=== PATIENT | female | born 2000 | race Caucasian/White ===

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

== ENCOUNTER 2020-05-14 14:44 | Emergency (ER) | payer OTHER, MEDICAID, SELFPAY ==
[2019-09-06 04:37] VITALS: BMI 16.6
[2020-05-14 14:45] VITALS: BP 131/75; PULSE 92; RESP 18; TEMP 36.3; O2SAT 93; BMI 20.3
--- NOTE | 2020-05-14 15:15 | RAD_ITS ---
STUDY: X-RAY CHEST REASON FOR EXAM: Female, 20 years old. pt having cough, sore throat, and runny nose TECHNIQUE: PA and lateral views of the chest. COMPARISON: 12/16/2015 FINDINGS: The lungs are clear and expanded. There is no demonstrated pleural abnormality. Normal size heart. Normal mediastinum and jayce. Normal visualized pulmonary arteries. Normal visualized aortic arch and descending thoracic aorta. Normal visualized thoracic spine. Normal visualized ribs, clavicles, and shoulders. There is no demonstrated abnormality of the visualized soft tissue structures of the upper abdomen. RAD/Chest PA and Lateral IMPRESSION: Normal x-ray examination of the chest. Electronically Signed: Ernesto Day MD at 15:27 EDT Tel , Service support ,
--- NOTE | 2020-05-14 16:36 | ED.DCSUM_ITS ---
History of Present Illness Chief Complaint: Cold Sx Informant: Patient Narrative: She presents the emergency department with 5 days of cough, chest soreness, sore throat, and nasal congestion. No reported fevers. She states her brother had similar symptoms but no one else that she has been around. She also notes some lower abdominal discomfort. She states that 6 weeks ago at 18 weeks she had a miscarriage. She went to have a D&C but states that she while under anesthesia she delivered naturally. She has not had any fevers or vaginal discharge. She does not have a local MECHANICAL SUPERVISOR as she was living in [place] at the time. No rashes. - Past Medical History (1) Anxiety Status: Chronic (2) Depression Status: Chronic Past Medical History - Allergies and Home Meds Allergies/Adverse Reactions: Allergies No Known Allergies Allergy (Verified 05/14/20 14:48) Primary Care Physician: Lynda Juarez PA-C [Primary Care Provider] - Prior records reviewed: Yes Past Medical History: None Surgical History: appendectomy, cholecystectomy Smoking Status: Current every day smoker Drugs: None Review of Systems General: Denies: Chills, Fever, Malaise, Sweats Eyes: Denies: Visual changes - bilaterally, Diplopia ENT: Reports: Rhinorrhea, Sore throat Cardiovascular: Reports: Chest pain. Denies: Palpitations Respiratory: Reports: Cough. Denies: Dyspnea, Dyspnea on exertion Gastrointestinal: Reports: Abdominal pain. Denies: Nausea, Vomiting, Diarrhea, Melena, Hematochezia Genitourinary: Reports: - - Continued vaginal bleeding since miscarriage. Dwayne es: Dysuria, Hematuria, Frequency Musculoskeletal: Denies: Back pain, Extremity Pain Skin: Denies: Rash, Wounds Neurological: Denies: Headache, Weakness, Numbness Physical Exam Vital Signs/Narrative: Vital Signs Temp Pulse Resp BP Pulse Ox 05/14/20 14:45 97.3 F L 92 18 131/75 H 93 Inital Vital Signs reviewed: Yes General: Well nourished, Well developed, No Acute Distress Head: Normocephalic, Atraumatic Eyes: Perrl, EOMI ENT: Moist mucous membranes, Nasal congestion, - - Mild pharyngeal erythema without exudates Neck: Supple, Nontender Cardiovascular: Regular rate, Regular rhythm, No murmurs Respiratory: No distress, CTA bilaterally, Chest nontender Abdomen: Soft, Nontender, Nondistended, Normal bowel sounds Back: Nontender, Normal Inspection Extremities: Nontender, No edema Skin: Normal color, No rash Neurological: Alert, Oriented x3, Cranial nerves II-XII grossly intact, Normal Strength, Normal Sensation Psychological: Normal affect, Normal Mood Diagnostic/Tx/Re-eval - Medical Decision Making Patient had a chest x-ray that was negative for infiltrates. We will swab her for COVID. Patient was advised this most likely a viral URI. She does not appear septic and it would be very atypical to develop a significant uterine infection without fever or discharge 6 weeks after her miscarriage. I will provide her with local MECHANICAL SUPERVISOR on-call follow-up. ED Disposition - Plan for ED Patient: Disposition: Home or Assisted Living Diagnosis: Viral URI with cough, Vaginal bleeding Instructions: ED URI Viral Referrals: Lynda Juarez PA-C [Primary Care Provider] - As Needed America Luque MD [STAFF PHYSICIAN] - As soon as possible (for MECHANICAL SUPERVISOR follow up)
[2020-05-14 16:42] VITALS: RESP 18
== END 2020-05-14 17:15 | disposition home or self-care (01) ==
LOC: ED 16:51
PROVIDERS: Emergency Provider Emergency Medicine
DX: J06.9 Acute upper respiratory infection, unspecified (principal); N93.9 Abnormal uterine and vaginal bleeding, unspecified; F17.200 Nicotine dependence, unspecified, uncomplicated
CPT/HCPCS: 71046; 87635; 99282; U0003

== ENCOUNTER 2020-05-24 01:02 | Emergency (ER) | payer OTHER, MEDICAID, SELFPAY ==
[2020-05-24 01:02] VITALS: BP 135/88; PULSE 51; RESP 18; TEMP 36.6; O2SAT 99; BMI 20.5
--- NOTE | 2020-05-24 01:15 | RAD_ITS ---
STUDY: X-RAY CHEST REASON FOR EXAM: Female, 20 years old. RT SIDED CP TECHNIQUE: Frontal and lateral views of the chest. COMPARISON: 05/14/2020. FINDINGS: There are no confluent pulmonary infiltrates. There is no demonstrated pleural abnormality. Normal size heart. Normal mediastinum and jayce. Normal visualized aortic arch and descending thoracic aorta. There are no demonstrated acute fractures or destructive bone lesions. There is no demonstrated abnormality of the visualized soft tissue structures of the upper abdomen. RAD/Chest PA and Lateral IMPRESSION: Normal x-ray examination of the chest. Electronically Signed: Crow Schwab MD at 1:42 EDT , Service support ,
--- NOTE | 2020-05-24 01:15 | EKG12_ITS ---
Test Reason : CP Blood Pressure : / mmHG Vent. Rate : 051 BPM Atrial Rate : 051 BPM P-R Int : 130 ms QRS Dur : 084 ms QT Int : 424 ms P-R-T Axes : 051 070 059 degrees QTc Int : 390 ms Sinus bradycardia with sinus arrhythmia Otherwise normal ECG Confirmed by ERIKA BRAY, ARAMIS ([id number]), makeup editor ADRIANO MCGEE ([id number]) on 05/29/2020 8:06:31 AM Referred By: PATTY Confirmed By:ARAMIS JAMES MD
--- NOTE | 2020-05-24 01:16 | ED.VIS.GEN ---
History of Present Illness Chief Complaint: Chest Pain Informant: Patient Narrative: Presents with chest discomfort. She stated 5 hours ago she started having some achiness in the left side of her chest. Mild in nature. No home treatment. No cardiac PE or dissection risk factors. Denies any chronic medical problems. Had a D&C for miscarriage approximately 2 months ago. She has been having some mild bleeding since. Denies any fevers or chills. No shortness of breath. No coronavirus exposures. She stated she has some soreness in the left side of her neck and soreness in her low back. No injury. No home treatment for these. - Past Medical History (1) Anxiety Status: Chronic (2) Depression Status: Chronic (3) History of appendectomy Status: Chronic (4) Hx of cholecystectomy Status: Chronic Past Medical History - Allergies and Home Meds Allergies/Adverse Reactions: Allergies No Known Allergies Allergy (Verified 05/24/20 01:05) Primary Care Physician: Care Physician,No Primary [Primary Care Provider] - Prior records reviewed: Yes Past Medical History: - - See problem list Surgical History: appendectomy, cholecystectomy Lives: With Family Smoking Status: Current some day smoker Alcohol: None Drugs: None Review of Systems General: Denies: Chills, Fever, Sweats Eyes: Denies: Visual changes - bilaterally, Diplopia ENT: Denies: Rhinorrhea, Sore throat Cardiovascular: Reports: Chest pain. Denies: Palpitations Respiratory: Denies: Dyspnea, Cough, Dyspnea on exertion Gastrointestinal: Denies: Abdominal pain, Nausea, Vomiting, Diarrhea, Melena, Hematochezia Genitourinary: Denies: Dysuria, Hematuria, Frequency Musculoskeletal: Reports: Neck pain, Back pain. Denies: Extremity Pain Skin: Denies: Rash, Wounds Neurological: Denies: Headache, Weakness, Numbness Physical Exam Vital Signs/Narrative: Vital Signs Temp Pulse Resp BP Pulse Ox 05/24/20 01:02 98 F 51 L 18 135/88 H 99 General: Well nourished, Well developed, No Acute Distress Head: Normocephalic, Atraumatic Eyes: Perrl, EOMI ENT: Moist mucous membranes, No rhinorrhea Neck: Supple, Nontender Cardiovascular: Regular rate, Regular rhythm, No murmurs Respiratory: No distress, CTA bilaterally, Chest nontender Abdomen: Soft, Nontender, Nondistended, Normal bowel sounds Back: Nontender, Normal Inspection Extremities: Nontender, No edema Skin: Normal color, No rash Neurological: Alert, Oriented x3, Cranial nerves II-XII grossly intact, Normal Strength, Normal Sensation Psychological: Normal affect, Normal Mood Diagnostic/Tx/Re-eval - Medical Decision Making Patient resting comfortably. EKG obtained upon arrival shows sinus bradycardia. Rate of 51 with sinus arrhythmia noted. T wave inversion in V1 and V2 only. Patient given ibuprofen. Chest x-ray obtained. It is negative. At this time I feel this is noncardiac related. I do not feel she needs lab work. Have a low suspicion for acute coronary syndrome pulmonary embolism or dissection. She has no risk factors for either of these. I like her to continue anti-inflammatories and follow-up as an outpatient ED Disposition - Plan for ED Patient: Disposition: Home or Assisted Living Diagnosis: Chest pain at rest Instructions: ED Chest Pain NonCardiac Prescriptions: Meloxicam 15 mg PO DAILY PRN PRN #30 tab PRN Reason: Pain Score 1-10 Transmission Status: Pending to [facility]/pharmacy #[id number] Referrals: Hussein Mancuso MD [STAFF PHYSICIAN] -
[2020-05-24] MEDS: Ibuprofen 600 MG Tablet PO (01:24)
[2020-05-24 02:00] VITALS: BP 115/75; PULSE 50; RESP 17; O2SAT 99
== END 2020-05-24 02:01 | disposition home or self-care (01) ==
PROVIDERS: Emergency Provider Emergency Medicine
DX: R07.89 Other chest pain (principal); M54.2 Cervicalgia; M54.9 Dorsalgia, unspecified; Z90.49 Acquired absence of other specified parts of digestive tract; F17.200 Nicotine dependence, unspecified, uncomplicated
CPT/HCPCS: 71046; 93005; 99284

== ENCOUNTER 2020-05-31 01:34 | Emergency (ER) | payer OTHER, MEDICAID, SELFPAY ==
[2020-05-31 01:36] VITALS: BP 117/69; PULSE 63; RESP 15; TEMP 36.2; O2SAT 100; BMI 20.5
--- NOTE | 2020-05-31 01:59 | ED.VIS.GEN ---
History of Present Illness Chief Complaint: Vag Bleeding Informant: Patient Narrative: Patient is a 20-year-old previously healthy female who presents to the emergency department for vaginal bleeding. She states that she is going through 5-6 tampons per day. She feels like the blood has turned a different color which made her concerned. She did have a D&C performed 10 weeks ago for a miscarriage although she states that she passes spontaneously during the procedure. She has been having daily bleeding like this since. She denies any symptoms of anemia including any lightheadedness, chest pain, shortness of breath or palpitations. She denies any easy bleeding or bruising elsewhere. This was her first . She denies any abdominal pain at this moment although she has had some intermittent pain previously. She has not had any fevers or chills. She denies any urinary symptoms. She has not followed up with an [employer] [facility]PER[facility]OR at this point. Past Medical History - Allergies and Home Meds Allergies/Adverse Reactions: Allergies No Known Allergies Allergy (Verified 05/31/20 01:35) Primary Care Physician: Monique Connell MD [STAFF PHYSICIAN] - 1 Day Care Physician,No Primary [Primary Care Provider] - Prior records reviewed: Yes Surgical History: appendectomy, cholecystectomy Smoking Status: Never smoker Review of Systems All systems negative except as indicated General: Denies: Chills, Fever, Sweats Eyes: Denies: Visual changes - bilaterally, Diplopia ENT: Denies: Rhinorrhea, Sore throat Cardiovascular: Denies: Chest pain, Palpitations Respiratory: Denies: Dyspnea, Cough, Dyspnea on exertion Gastrointestinal: Denies: Abdominal pain, Nausea, Vomiting, Diarrhea, Melena, Hematochezia Genitourinary: Reports: - - Vaginal bleeding. Denies: Dysuria, Hematuria, Frequency Musculoskeletal: Denies: Back pain, Extremity Pain Skin: Denies: Rash, Wounds Neurological: Denies: Headache, Weakness, Numbness Physical Exam Vital Signs/Narrative: Vital Signs Temp Pulse Resp BP Pulse Ox 05/31/20 01:36 97.2 F L 63 15 117/69 100 Inital Vital Signs reviewed: Yes General: Well nourished, Well developed, No Acute Distress Head: Normocephalic, Atraumatic Eyes: Perrl, EOMI ENT: Moist mucous membranes, No rhinorrhea Neck: Supple, Nontender Cardiovascular: Regular rate, Regular rhythm, No murmurs Respiratory: No distress, CTA bilaterally, Chest nontender Abdomen: Soft, Nontender, Nondistended, Normal bowel sounds Back: Nontender, Normal Inspection Extremities: Nontender, No edema Skin: Normal color, No rash Neurological: Alert, Oriented x3, Cranial nerves II-XII grossly intact, Normal Strength, Normal Sensation Psychological: Normal affect, Normal Mood Diagnostic/Tx/Re-eval - Medical Decision Making Patient presents to the emergency department for vaginal bleeding over the past 10 weeks since she had a D&C performed. Physical exam is very benign without any abdominal pain. She is afebrile. Vital signs within normal limits. At this time we do not have ultrasound available in the department. Will check basic lab work to evaluate anemia status. Patient's lab work did not reveal any significant acute abnormality. H&H was within normal limits. She does not have an elevated blood cell count. Urine did not show any evidence of infection. Urine came back negative. I urged the patient to call the [employer]PER[employer] that I am giving her referral to that in the morning for close follow-up. She was given referral for [employer] when she was last seen in the emergency department for URI complaints on 14 May but she did not call. We will make a new referral. Warning signs and symptoms for which to return to the ED including any abdominal pain, fever/chills or symptoms of anemia are reviewed. She understands and is agreeable this plan. Patient discharged home in stable condition. ED Disposition - Plan for ED Patient: Disposition: Home or Assisted Living Diagnosis: Vaginal bleeding Instructions: ED Bleed Irregular Vaginal Referrals: Care Physician,No Primary [Primary Care Provider] - Monique Connell MD [STAFF PHYSICIAN] - 1 Day
[2020-05-31 02:01] LABS: Absolute Lymphocyte Count 2.43 X10^3/uL (0.83-4.51); Absolute Neutrophil Count 2.9 X10^3/uL (2.0-7.7); Basophil# 0.08 X10^3/uL; Basophil% 1.3 % (0-1); Eosinophil# 0.23 X10^3/uL; Eosinophils% 3.7 % (0-5); Hematocrit 39.8 % (37-47); Hemoglobin 13.7 g/dL (12.0-15.0); Lymphocyte # 2.43 X10^3/ul (4.0); Lymphocyte % 38.6 % (19-41); Mean Corp Hgb Conc 34.4 g/dL (32-36); Mean Corpuscular Hgb 31.6 pg (27.0-32.0); Mean Corpuscular Volume 91.7 fL (81-99); Mean Platelet Vol. 9.7 fl (6.2-12.0); Monocyte# 0.63 X10^3/uL; NRBC Flagged by Analyzer 0 % (0-5); Neutrophil # 2.91 X10^3/uL (2.7-7.7); Neutrophil % 46.2 % (47-70); Platelet Count 279 K/mm3 (150-450); RBC Distribution Width CV 10.7 % (11.6-14.6); RBC Distribution Width SD 36.2 fl (35.1-43.9); Red Blood Count 4.34 M/mm3 (4.2-5.4); White Blood Count 6.3 K/mm3 (4.4-11.0)
[2020-05-31 02:06] LABS: Bacteria 0 SEEN /hpf (None Seen); Color, Urine Yellow (Yellow); Glucose, Dipstick Normal (Normal); Ketone-Dipstick Negative (Negative); Leukocyte Esterase-Dipstick 25 /ul (Negative); Mucous, Urine 0 SEEN /hpf (<or=2+); Nitrite-Dipstick Negative (Negative); Occult Blood-Urine 150 /ul (Negative); Protein-Dipstick Negative (Negative); Specific Gravity, Urine 1.025 (1.002-1.030); Urine Bilirubin Dipstick Negative (Negative); Urine Clarity Sl. Cloudy (Clear); Urine Urobilinogen Normal (Normal)
[2020-05-31 02:09] LABS: Internal QC Validated? YES +Cl - CLEAR BKGD; Pregnancy, Urine Negative Negative
[2020-05-31 02:11] LABS: White Blood Cells 5-10 SEEN /hpf (0-5)
[2020-05-31 02:12] LABS: Red Blood Cells-Urine 0-5 SEEN /hpf (0-5); Squamous Epithelial Cells - UA 10-25 SEEN /hpf (5-10)
[2020-05-31 02:14] LABS: Anion Gap 4 (5-15); BUN 16 mg/dL (7-18); BUN/Creat Ratio 18.3 RATIO (10-20); Calcium,Total 9.2 mg/dL (8.5-10.1); Chloride 109 mmol/L (98-107); Creatinine, Serum 0.87 mg/dL (0.55-1.02); EST Glomerular Filtration Rate 88 mL/min (>60); Est Glom Filt Rate - Afr Amer 106 mL/min (>60); Estimated Creatinine Clearance 85.33 ml/min; Glucose 93 mg/dL (74-106); Potassium 3.6 mmol/L (3.5-5.1); Sodium Level 143 mmol/L (136-145)
== END 2020-05-31 02:35 | disposition home or self-care (01) ==
PROVIDERS: Emergency Provider Emergency Medicine
DX: N93.9 Abnormal uterine and vaginal bleeding, unspecified (principal)
CPT/HCPCS: 80048; 81001; 81025; 85025; 99281; A4216

== ENCOUNTER → 2020-06-20 09:37 | Outpatient (CLI) | payer OTHER, MEDICAID, SELFPAY ==
[2020-05-31 01:36] VITALS: BMI 20.5
[2020-06-20 12:02] LABS: hCG Titer Quant., Serum 81 mIU/mL (1-3)
== END ==
PROVIDERS: Referring Provider Nurse Practitioner Women's Health; Visit Provider Nurse Practitioner Women's Health
DX: N91.2 Amenorrhea, unspecified (principal)
CPT/HCPCS: 36415; 84702

== ENCOUNTER → 2020-06-22 12:41 | Outpatient (CLI) | payer OTHER, MEDICAID, SELFPAY ==
[2020-05-31 01:36] VITALS: BMI 20.5
[2020-06-22 13:44] LABS: hCG Titer Quant., Serum 204 mIU/mL (1-3)
== END ==
PROVIDERS: Referring Provider Nurse Practitioner Women's Health; Visit Provider Nurse Practitioner Women's Health
DX: N91.2 Amenorrhea, unspecified (principal)
CPT/HCPCS: 36415; 84702

== ENCOUNTER → 2020-07-18 16:24 | Outpatient (CLI) | payer OTHER, MEDICAID, SELFPAY ==
[2020-07-09 11:51] VITALS: BMI 20.3
--- NOTE | 2020-07-18 16:27 | US_ITS ---
STUDY: FIRST TRIMESTER OBSTETRICAL ULTRASOUND REASON FOR EXAM: Female, 20 years old DATING LMP: 05/22/2020 TECHNIQUE: Transvaginal TECHNICAL QUALITY: Adequate. PRIOR ULTRASOUND: None. FINDINGS: There is visualization of a single gestational sac in a normal intrauterine position. The mean sac diameter (MSD) measures 28 mm, indicating an estimated gestational age (EGA) of 7 weeks, 6 days. The gestational sac shape is within normal limits. 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 There is a visualized yolk sac. The yolk sac measures 4 mm. The placenta is non-visualized. There is visualization of a live embryo. The crown-rump length (CRL) measures 14 mm, indicating an estimated gestational age (EGA) of 7 weeks, 4 days. There is demonstrated cardiac activity with a heart rate of 171 bpm. The estimated gestation age (EGA) by LMP is 8 weeks, 1 days. The estimated date of delivery (JOSE MARIA) by LMP is 02/26/2021. The estimated gestation age (EGA) by US is 7 weeks, 5 days. The estimated date of delivery (JOSE MARIA) by US is 03/01/2021. The uterus measures 9.4 x 9.9 x 4.4 cm. There is no demonstrated uterine fibroid. The cervix is closed. The right ovary measures 3.2 x 2.2 x 1.6 cm. There is no right ovarian cyst. There is no visualized right adnexal mass or complex lesion. The left ovary measures 2.0 x 1.6 x 1.5 cm. There is no left ovarian cyst. There is no visualized left adnexal mass or complex lesion. There is no fluid in the cul de sac. 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 Electronically Signed: Ernesto Day MD at 12:54 EST Tel , Service support ,
[2020-07-18 17:18] LABS: Absolute Lymphocyte Count 1.57 X10^3/uL (0.83-4.51); Absolute Neutrophil Count 9.2 X10^3/uL (2.0-7.7); Basophil# 0.07 X10^3/uL; Basophil% 0.6 % (0-1); Eosinophil# 0.05 X10^3/uL; Eosinophils% 0.4 % (0-5); Hematocrit 39.9 % (37-47); Hemoglobin 13.7 g/dL (12.0-15.0); Lymphocyte # 1.57 X10^3/ul (4.0); Lymphocyte % 13.3 % (19-41); Mean Corp Hgb Conc 34.3 g/dL (32-36); Mean Corpuscular Hgb 30.9 pg (27.0-32.0); Mean Corpuscular Volume 90.1 fL (81-99); Mean Platelet Vol. 9.3 fl (6.2-12.0); Monocyte# 0.86 X10^3/uL; Monocyte% 7.3 % (0-10); NRBC Flagged by Analyzer 0 % (0-5); Neutrophil # 9.21 X10^3/uL (2.7-7.7); Platelet Count 274 K/mm3 (150-450); RBC Distribution Width CV 11.1 % (11.6-14.6); RBC Distribution Width SD 36.4 fl (35.1-43.9); Red Blood Count 4.43 M/mm3 (4.2-5.4); White Blood Count 11.8 K/mm3 (4.4-11.0)
[2020-07-19 02:34] LABS: Rapid Plasmin Reagin (RPR) NONREACTIVE (NONREACTIVE)
[2020-07-19 09:00] LABS: HIV - WCH Non-Reactive (Nonreactive); Hepatitis B Surface Antigen Non-Reactive (Nonreactive); Hepatitis C Antibody Non-Reactive (Nonreactive); Rubella IgG Reactive (Nonreactive)
[2020-07-22 07:06] LABS: Dilute Russell Viper Venom 29.1 sec (0.0-47.0); Thrombin Time 15.8 sec (0.0-23.0); dPT Confirm Ratio 0.92 Ratio (0.00-1.40)
[2020-07-22 14:26] LABS: Anti-Cardiolipin Ab, IgA, Qn < 9 APL U/mL (0-11); Anti-Cardiolipin Ab, IgG, Qn < 9 GPL U/mL (0-14); Anti-Cardiolipin Ab, IgM, Qn 13 MPL U/mL (0-12); Beta-2-Glycoprotein I IgA <9 (0-25); Beta-2-Glycoprotein I IgG <9 (0-20); Beta-2-Glycoprotein I IgM <9 (0-32); Interpretation Comment: (.)
== END ==
PROVIDERS: Referring Provider Obstetrics & Gynecology; Visit Provider Obstetrics & Gynecology
DX: Z34.90 Encounter for supervision of normal pregnancy, unspecified, unspecified trimester (principal); Z87.59 Personal history of other complications of pregnancy, childbirth and the puerperium
CPT/HCPCS: 36415; 76801; 85025; 86146; 86147; 86592; 86703; 86762; 86803; 86850; 86900; 86901; 87340

== ENCOUNTER → 2020-08-16 13:08 | Outpatient (CLI) | payer OTHER, MEDICAID, SELFPAY ==
[2020-08-08 16:24] VITALS: BMI 20.9
== END ==
PROVIDERS: Referring Provider Obstetrics & Gynecology; Visit Provider Obstetrics & Gynecology
DX: Z34.81 Encounter for supervision of other normal pregnancy, first trimester (principal); Z31.430 Encounter of female for testing for genetic disease carrier status for procreative management
CPT/HCPCS: 36415

== ENCOUNTER → 2020-09-12 | Outpatient (CLI) | payer OTHER, MEDICAID, SELFPAY ==
[2020-09-12 13:45] VITALS: BMI 20.8
== END | disposition home or self-care (01) ==
LOC: LABSPEC 15:33
PROVIDERS: Referring Provider Obstetrics & Gynecology; Visit Provider Obstetrics & Gynecology
DX: O26.899 Other specified pregnancy related conditions, unspecified trimester (principal); R10.2 Pelvic and perineal pain; Z3A.00 Weeks of gestation of pregnancy not specified
CPT/HCPCS: 87070; 87077; 87086; 87088; 87205

== ENCOUNTER 2020-09-13 18:54 | Outpatient (CLI) | payer OTHER, MEDICAID, SELFPAY ==
[2020-09-12 13:45] VITALS: BMI 20.8
[2020-09-13 19:13] VITALS: BP 118/59; PULSE 59; TEMP 37.1; O2SAT 99
[2020-09-13 19:19] VITALS: PULSE 64; O2SAT 98
[2020-09-13 19:21] VITALS: BP 118/59; PULSE 59
[2020-09-13 19:31] VITALS: BMI 21.0
--- NOTE | 2020-09-13 21:27 | OB.TRI.NOTE ---
- Problem List (1) Vaginal discharge Status: Acute (2) Supervision of high risk , antepartum Status: Acute Comment: JOSE MARIA 03[birth year] PC (Sosa-jul) BF: Javi History of Present Illness Date of Service: 09/13/20 Was patient seen by the physician?: Yes Reason For Visit: R/O RUPTURED MEMBRANE Date of Service: 09/13/20 Final JOSE MARIA: 03/02/21 Gestational age: 15 Weeks and 5 Days History of Present Illness: 20-year-old G2, P0 at 15 weeks gestation presenting for leakage of fluid. Patient reports that she has felt increased need to urinate. Reports that she feels like she is leaking fluid when she urinates. Denies leakage between episodes of urination. Denies pain or burning with urination. She had a urinalysis done in the office yesterday that was negative. Urine culture is still pending from the office. Allergies No Known Allergies Allergy (Verified 09/13/20 19:33) - Pertinent Past Medical History Medical History: Past Medical History (Last Reviewed 09/12/20 @ 13:44 by Shell Marquez) demise (Resolved) Onset Date: ~03/2020 [facility] demise (Resolved) Onset Date: ~03/2020 at 18 weeks [facility] Surgical History: Past Surgical History (Last Reviewed 09/12/20 @ 13:44 by Shell Marquez) S/P appendectomy S/P cholecystectomy Review of Systems Constitutional: Denies: Chills, Fever Genitourinary: Reports: Frequency, Urgency. Denies: Dysuria, Hematuria, Hesitancy, Incontinence Gynecological: Reports: Vaginal discharge. Denies: Vaginal bleeding, Vaginal itching Physical Exam Vitals: Vital Signs Pulse BP Pulse Ox 59 L 118/59 L 98 09/13/20 19:21 09/13/20 19:21 09/13/20 19:19 General: Alert, Oriented x3, Cooperative, No apparent distress, Well developed, Well nourished HEENT: Atraumatic, PERRLA, EOMI, Normocephalic Cardiovascular: Regular rate Lungs: Normal air movement Abdomen: Soft, Non Tender, Non-Distended, Gravid, Appropriate for Gestational Age Extremities:: No edema Neurological: Cranial nerves II-XII grossly intact, Neuro grossly intact FACILITIES LOCATOR: Normal external genitalia, Vulvar lesions Cervix Dilation (cm): 0 - No pooling of fluid NST - FHR Rate Baby A Baseline: Heart tones 150s Impression/Plan 20-year-old G2, P0 at 15 weeks gestation presenting with leakage of fluid 1. Leakage of fluid -Presents with loss of fluid. -Had urinalysis done in the office yesterday which was negative. Urine culture pending. -Speculum exam shows no pooling of fluid. No pooling noted with Valsalva. -Bedside ultrasound performed to confirm heart rate appears normal and normal amount of fluid around baby. -Cervix closed thick and high. -Discussed that this is likely due to pressure from the fact that baby is sitting low in her pelvis. Vaginal culture still pending from the office yesterday. Urine culture still pending. -Reassurance provided. Return precautions reviewed with patient. Multi Select Codes - Visit Charges Office Visit/Consults: 29991 OV L3 Est
== END 2020-09-13 19:40 | disposition home or self-care (01) ==
LOC: WP 09-14 01:17 → WPOUT 09-14 01:17
PROVIDERS: Visit Provider Obstetrics & Gynecology
DX: Z03.71 Encounter for suspected problem with amniotic cavity and membrane ruled out (principal)
CPT/HCPCS: 76815; 99218; G0378

== ENCOUNTER 2020-10-04 21:38 | Outpatient (CLI) | payer OTHER, MEDICAID, SELFPAY ==
[2020-09-28 13:13] VITALS: BMI 21.4
[2020-10-04 21:44] VITALS: BP 110/55; PULSE 73; TEMP 37.6; O2SAT 100
[2020-10-04 21:47] VITALS: BP 110/55; PULSE 66; PULSE 74; O2SAT 100
[2020-10-04 22:05] VITALS: BMI 21.5
[2020-10-04 22:44] LABS: Color, Urine Yellow (Yellow); Glucose, Dipstick Normal (Normal); Ketone-Dipstick Negative (Negative); Leukocyte Esterase-Dipstick 25 /ul (Negative); Nitrite-Dipstick Negative (Negative); Occult Blood-Urine Negative /ul (Negative); Protein-Dipstick Negative (Negative); Urine Bilirubin Dipstick Negative (Negative); Urine Clarity Sl. Cloudy (Clear); Urine Urobilinogen Normal (Normal)
[2020-10-04] MEDS: metroNIDAZOLE 500 MG Tablet PO (22:47)
--- NOTE | 2020-10-05 17:02 | OB.TRI.HP_ITS ---
- Problem List (1) Pelvic pressure in female Status: Acute (2) Supervision of high risk , antepartum Status: Acute Comment: JOSE MARIA 03[birth year]21 Boy Daisy Kevin (calling him Kevin) PC () BF: Javi History of Present Illness Date of Service: 10/04/20 Was patient seen by the physician?: Yes Reason For Visit: CRAMPING Date of Service: 10/04/20 Final JOSE MARIA: 03/02/21 Gestational age: 18 Weeks and 6 Days History of Present Illness: 20-year-old G2, P0 at 18 weeks gestation with a history of cervical insufficiency 1 week status post cerclage placement presents with pelvic pressure and discomfort. Reports the pain started about 2 h prior to arrival. Reports that pain has been constant. Reports feels like pelvic pressure. Denies vaginal bleeding. Does report a small amount of increased discharge. Allergies No Known Allergies Allergy (Verified 10/04/20 22:21) - Pertinent Past Medical History Medical History: Past Medical History (Last Reviewed 10/05/20 @ 10:43 by Marii Gillis) demise (Resolved) Onset Date: ~03/2020 demise at 18 weeks- in [facility] demise (Resolved) Onset Date: ~03/2020 at 18 weeks delivered in [facility] Surgical History: Past Surgical History (Last Reviewed 10/05/20 @ 10:43 by Marii Gillis) S/P appendectomy S/P cholecystectomy Laboratory Studies: Laboratory Tests 10/04/20 Range/Units 22:35 Urine Color Yellow (Yellow) Urine Clarity Sl. Cloudy (Clear) Urine pH 7.0 (5.0 - 8.0) Ur Specific [place] 1.010 (1.002-1.030) Urine Protein Negative (Negative) mg/dl Urine Glucose (UA) Normal (Normal) mg/dl Urine Ketones Negative (Negative) mg/dl Urine Occult Blood Negative (Negative) /ul Urine Nitrite Negative (Negative) Urine Bilirubin Negative (Negative) mg/dL Urine Urobilinogen Normal (Normal) mg/dl Ur Leukocyte Esterase 25 H (Negative) /ul Review of Systems Constitutional: Denies: Chills, Fever Gastrointestinal: Denies: Constipation, Diarrhea, Nausea, Vomiting Genitourinary: Denies: Dysuria, Frequency, Hematuria, Urgency Gynecological: Reports: Vaginal discharge. Denies: Vaginal bleeding, Vaginal itching Physical Exam Vitals: Vital Signs Temp Pulse BP Pulse Ox 99.7 F H 74 110/55 L 100 10/04/20 21:44 10/04/20 21:47 10/04/20 21:47 10/04/20 21:47 General: Alert, Oriented x3, Cooperative, No apparent distress, Well developed, Well nourished HEENT: Atraumatic, PERRLA, EOMI, Normocephalic Lungs: Normal air movement Abdomen: Soft, Non-Distended, Appropriate for Gestational Age, - - Mild suprapubic tenderness Extremities:: No edema Neurological: Cranial nerves II-XII grossly intact, Neuro grossly intact Cervix Dilation (cm): 0 - Cervix closed thick and high with cerclage in place and not on tension NST - FHR Rate Baby A Baseline: 150 Impression/Plan 20-year-old G2, P0 at 18 weeks gestation presenting with pelvic pressure with a history of cervical insufficiency with cerclage in place. Pelvic pressure -Cerclage in place and not on tension -Cervix closed thick and high -Moderate amount of vaginal discharge present concerning for bacterial vaginosis. Given the bacterial vaginosis came potentially induced contractions, prescription given for Flagyl. Vaginal culture sent. -Recent UTI-urine culture sent. -Bedside ultrasound performed and confirms adequate amniotic fluid with good movement -Reassurance provided. Reviewed return precautions. Patient has appointment scheduled in the morning to be seen in our office. Multi Select Codes - Visit Charges Office Visit/Consults: 72416 OV L3 Est
== END 2020-10-04 23:00 | disposition home or self-care (01) ==
LOC: WPOUT 21:41 → WP 21:42
PROVIDERS: Visit Provider Obstetrics & Gynecology
DX: O26.892 Other specified pregnancy related conditions, second trimester (principal); R10.2 Pelvic and perineal pain; O34.32 Maternal care for cervical incompetence, second trimester; Z3A.18 18 weeks gestation of pregnancy; Z87.440 Personal history of urinary (tract) infections
CPT/HCPCS: 59050; 76815; 81002; 87070; 87077; 87086; 87088; 87186; 87205; 99218; G0378

== ENCOUNTER 2020-11-21 18:05 | Outpatient (CLI) | payer OTHER, MEDICAID, SELFPAY ==
[2020-11-16 15:02] VITALS: BMI 23.1
[2020-11-21 18:14] VITALS: BMI 23.3
[2020-11-21 18:20] VITALS: TEMP 37.3
[2020-11-21 18:22] VITALS: BP 117/60; PULSE 72
[2020-11-21 18:30] LABS: Color, Urine Yellow (Yellow); Glucose, Dipstick Normal (Normal); Ketone-Dipstick Negative (Negative); Leukocyte Esterase-Dipstick 100 /ul (Negative); Nitrite-Dipstick Negative (Negative); Occult Blood-Urine Negative /ul (Negative); Protein-Dipstick Negative (Negative); Specific Gravity, Urine 1.015 (1.002-1.030); Urine Bilirubin Dipstick Negative (Negative); Urine Clarity Clear (Clear); Urine Urobilinogen Normal (Normal)
--- NOTE | 2020-11-22 13:05 | OB.TRI.NOTE ---
- Problem List (1) Vaginitis affecting in third trimester, antepartum Status: Acute (2) Supervision of high risk , antepartum Status: Acute Comment: PRR JOSE MARIA 03/[birth year]21 Boy Daisy Brown (calling him Kevin) PC () BF: Javi History of Present Illness Date of Service: 11/21/20 Was patient seen by the physician?: Yes Reason For Visit: SPOTTING Date of Service: 11/21/20 Final JOSE MARIA: 03/02/21 Gestational age: 25 Weeks and 5 Days History of Present Illness: 20-year-old G2, P0 at 25 weeks gestation with a history of cervical insufficiency with cerclage in place presents for vaginal spotting. Reports that earlier this evening, she noticed pink-tinged discharge on the toilet paper followed by pelvic pressure. No further vaginal bleeding noted since this time. Does report increased vaginal discharge. Denies pain or burning with urination. Allergies No Known Allergies Allergy (Verified 11/16/20 15:03) - Pertinent Past Medical History Medical History: Past Medical History (Last Reviewed 11/12/20 @ 13:21 by Leilani Argueta) demise (Resolved) Onset Date: ~03/2020 demise at 18 weeks- in [facility] demise (Resolved) Onset Date: ~03/2020 at 18 weeks delivered in [facility] Surgical History: Past Surgical History (Last Reviewed 11/12/20 @ 13:21 by Leilani Argueta) S/P appendectomy S/P cholecystectomy Laboratory Studies: Laboratory Tests 11/21/20 Range/Units 18:22 Urine Color Yellow (Yellow) Urine Clarity Clear (Clear) Urine pH 8.0 (5.0 - 8.0) Ur Specific [place] 1.015 (1.002-1.030) Urine Protein Negative (Negative) mg/dl Urine Glucose (UA) Normal (Normal) mg/dl Urine Ketones Negative (Negative) mg/dl Urine Occult Blood Negative (Negative) /ul Urine Nitrite Negative (Negative) Urine Bilirubin Negative (Negative) mg/dL Urine Urobilinogen Normal (Normal) mg/dl Ur Leukocyte Esterase 100 H (Negative) /ul Review of Systems Constitutional: Denies: Chills, Fever Gastrointestinal: Reports: Abdominal Pain. Denies: Nausea, Vomiting Genitourinary: Denies: Dysuria, Frequency, Hematuria Gynecological: Reports: Vaginal bleeding, Vaginal discharge. Denies: Vaginal itching Physical Exam Vitals: Vital Signs Temp Pulse BP 99.1 F 72 117/60 11/21/20 18:20 11/21/20 18:22 11/21/20 18:22 General: Alert, Oriented x3, Cooperative, No apparent distress, Well developed, Well nourished HEENT: Atraumatic, PERRLA, EOMI, Normocephalic Cardiovascular: Regular rate, Regular Rhythm Lungs: Normal air movement Abdomen: Soft, Non Tender, Non-Distended, Gravid, Appropriate for Gestational Age Extremities:: No edema Neurological: Cranial nerves II-XII grossly intact, Neuro grossly intact FURNACE COMBUSTION ANALYST: Normal external genitalia Presentation: Cephalic Cervix Dilation (cm): 0 - Cerclage in place, not on tension, thick white discharge noted NST - FHR Rate Baby A Variability:: Moderate Accelerations:: 10 x 10 Decelerations:: None NST Reactive:: Appropriate for gestational age FHR Category:: Category I Uterine Activity:: No contractions Impression/Plan 20-year-old G2, P0 at 25 weeks gestation presenting with vaginal bleeding Vaginal bleeding -Cerclage in place and not on tension -Cervix closed thick and high -No evidence of bleeding. No further bleeding since arrival. -Exam shows evidence of yeast infection-Terazol cream prescribed, vaginal culture sent. -UA positive for leuks but otherwise negative. Urine culture sent. Multi Select Codes - Visit Charges Office Visit/Consults: 22732 OV L3 Est - Urinary/Genital Urinary/Genital CPT Codes: 03635-28 non-stress test Interp
== END 2020-11-21 19:15 | disposition home or self-care (01) ==
LOC: WPOUT 18:12 → WP 18:13
PROVIDERS: Visit Provider Obstetrics & Gynecology
DX: O46.92 Antepartum hemorrhage, unspecified, second trimester (principal); O09.92 Supervision of high risk pregnancy, unspecified, second trimester; Z3A.25 25 weeks gestation of pregnancy
CPT/HCPCS: 59025; 59050; 81002; 87070; 87086; 87088; 87205; 99218; G0378

== ENCOUNTER → 2020-11-30 10:09 | Outpatient (CLI) | payer OTHER, MEDICAID, SELFPAY ==
[2020-11-30 09:35] VITALS: BMI 23.3
[2020-11-30 10:49] LABS: Absolute Lymphocyte Count 1.43 X10^3/uL (0.83-4.51); Absolute Neutrophil Count 8.7 X10^3/uL (2.0-7.7); Basophil# 0.06 X10^3/uL; Basophil% 0.5 % (0-1); Eosinophils% 0.9 % (0-5); Hematocrit 38.5 % (37-47); Hemoglobin 12.9 g/dL (12.0-15.0); Lymphocyte # 1.43 X10^3/ul (0.83-4.51); Lymphocyte % 13.1 % (19-41); Mean Corp Hgb Conc 33.5 g/dL (32-36); Mean Corpuscular Hgb 31.6 pg (27.0-32.0); Mean Corpuscular Volume 94.4 fL (81-99); Mean Platelet Vol. 9.9 fl (6.2-12.0); Monocyte# 0.56 X10^3/uL; Monocyte% 5.1 % (0-10); NRBC Flagged by Analyzer 0 % (0-5); Neutrophil # 8.71 X10^3/uL (2.7-7.7); Neutrophil % 79.6 % (47-70); Platelet Count 218 K/mm3 (150-450); RBC Distribution Width CV 11.5 % (11.6-14.6); RBC Distribution Width SD 39.4 fl (35.1-43.9); Red Blood Count 4.08 M/mm3 (4.2-5.4)
[2020-11-30 10:59] LABS: Glucose Challenge Gest 1H 50g 131 mg/dL (70-140)
[2020-12-03 18:47] LABS: V-Zoster IgG (Immunity) < 135 index (Immune >165)
== END ==
PROVIDERS: Obstetrics & Gynecology; Referring Provider Obstetrics & Gynecology; Visit Provider Obstetrics & Gynecology
DX: Z34.90 Encounter for supervision of normal pregnancy, unspecified, unspecified trimester (principal); Z01.84 Encounter for antibody response examination; Z13.1 Encounter for screening for diabetes mellitus
CPT/HCPCS: 36415; 82950; 85025; 86787

== ENCOUNTER 2020-12-10 19:04 | Outpatient (CLI) | payer OTHER, MEDICAID, SELFPAY ==
[2020-12-07 08:37] VITALS: BMI 23.3
[2020-12-10 19:20] VITALS: BMI 23.8
[2020-12-10 19:21] VITALS: BP 121/62; PULSE 76; PULSE 83; TEMP 37.2; O2SAT 98
[2020-12-10] MEDS: Terbutaline 1 MG/ML Vial 0.25 MG SC (20:02)
[2020-12-10 20:26] LABS: ROM Internal Control Test YES-OK TO RESULT pt. (Internal QC); ROM Patient Test Negative (Negative)
[2020-12-10 20:40] LABS: Color, Urine Yellow (Yellow); Glucose, Dipstick Normal (Normal); Ketone-Dipstick Negative (Negative); Leukocyte Esterase-Dipstick Negative /ul (Negative); Nitrite-Dipstick Negative (Negative); Occult Blood-Urine Negative /ul (Negative); Protein-Dipstick Negative (Negative); Specific Gravity, Urine 1.015 (1.002-1.030); Urine Bilirubin Dipstick Negative (Negative); Urine Clarity Clear (Clear); Urine Urobilinogen Normal (Normal)
--- NOTE | 2020-12-11 12:24 | OB.TRI.PN ---
Progress Notes Progress Note: Patient presents for triage evaluation secondary to threatened labor FHT: 140 Moderate variability reactive no decelerations category I tracing [place]: Initially every 5 minutes and then none after terbutaline contractions Assessment and plan: Threatened labor, cervix closed negative ROM plus, no cervical change in contractions resolved with 1 dose of terbutaline. Reactive NST, reassuring maternal and status patient discharged to home to follow-up as scheduled in the office. See problem list details for additional plan information. Laboratory Studies: Laboratory Tests 12/10/20 12/10/20 Range/Units 20:30 19:30 Urine Color Yellow (Yellow) Urine Clarity Clear (Clear) Urine pH 6.0 (5.0 - 8.0) Ur Specific [place] 1.015 (1.002-1.030) Urine Protein Negative (Negative) mg/dl Urine Glucose (UA) Normal (Normal) mg/dl Urine Ketones Negative (Negative) mg/dl Urine Occult Blood Negative (Negative) /ul Urine Nitrite Negative (Negative) Urine Bilirubin Negative (Negative) mg/dL Urine Urobilinogen Normal (Normal) mg/dl Ur Leukocyte Esterase Negative (Negative) /ul Vag Amniotic Fld Detect Negative (Negative) Assessment & Plan Assessment/Plan (1) Threatened labor: Status: Acute Code(s): O47.00 - False labor before 37 completed weeks of gestation, unspecified trimester Qualifiers: Trimester: third trimester Qualified Code(s): O47.03 - False labor before 37 completed weeks of gestation, third trimester Procedures Urinary/Genital [id number]: 06608-11 non-stress test Interp
== END 2020-12-10 21:40 | disposition home or self-care (01) ==
LOC: WPOUT 19:11 → OBT 19:11
PROVIDERS: Visit Provider Obstetrics & Gynecology
DX: O47.03 False labor before 37 completed weeks of gestation, third trimester (principal); Z3A.37 37 weeks gestation of pregnancy
CPT/HCPCS: 59025; 59050; 81002; 84112; 87077; 87086; 87088; 96372; 99218; G0378

== ENCOUNTER 2021-01-03 08:45 | Outpatient (CLI) | payer OTHER, MEDICAID, SELFPAY ==
[2020-12-28 09:16] VITALS: BMI 23.8
[2021-01-03] VITALS (20 sets, daily range): BP systolic 110–123; BP diastolic 63–82; PULSE 67–96; TEMP 36.8; O2SAT 90–100; BMI 23.8
[2021-01-03] MEDS: Lactated Ringers 1,000 ML 125 ML IV (09:05)
[2021-01-03] MEDS: Magnesium Sulfate 4gm/100mL 4 GM/100 ML IV.SOLN. IV (09:17)
[2021-01-03 09:23] LABS: Absolute Lymphocyte Count 1.57 X10^3/uL (0.83-4.51); Absolute Neutrophil Count 10.7 X10^3/uL (2.0-7.7); Basophil# 0.07 X10^3/uL; Basophil% 0.5 % (0-1); Eosinophil# 0.11 X10^3/uL; Eosinophils% 0.8 % (0-5); Hematocrit 38.5 % (37-47); Hemoglobin 13.2 g/dL (12.0-15.0); Lymphocyte # 1.57 X10^3/ul (0.83-4.51); Lymphocyte % 11.8 % (19-41); Mean Corp Hgb Conc 34.3 g/dL (32-36); Mean Corpuscular Hgb 31.6 pg (27.0-32.0); Mean Corpuscular Volume 92.1 fL (81-99); Mean Platelet Vol. 10.2 fl (6.2-12.0); Monocyte# 0.72 X10^3/uL; Monocyte% 5.4 % (0-10); NRBC Flagged by Analyzer 0 % (0-5); Neutrophil # 10.69 X10^3/uL (2.7-7.7); Neutrophil % 80.6 % (47-70); Platelet Count 235 K/mm3 (150-450); RBC Distribution Width CV 11.5 % (11.6-14.6); RBC Distribution Width SD 38.6 fl (35.1-43.9); Red Blood Count 4.18 M/mm3 (4.2-5.4); White Blood Count 13.3 K/mm3 (4.4-11.0)
[2021-01-03] MEDS: Indomethacin 25 MG Capsule 50 MG PO (09:24)
[2021-01-03] MEDS: Betamethasone/Betamethasone 30 MG/5 ML Vial 12 MG IM (09:28)
[2021-01-03] MEDS: Magnesium Sulfate 4gm/100mL 2 GM/50 ML IV.SOLN. IV (09:42)
[2021-01-03 09:50] LABS: Mucous, Urine 0 SEEN /hpf (<or=2+); Red Blood Cells-Urine 0 SEEN /hpf (0-5)
[2021-01-03 09:53] LABS: Color, Urine Yellow (Yellow); Glucose, Dipstick Normal (Normal); Ketone-Dipstick Negative (Negative); Leukocyte Esterase-Dipstick 100 /ul (Negative); Nitrite-Dipstick Negative (Negative); Occult Blood-Urine Negative /ul (Negative); Protein-Dipstick Negative (Negative); Urine Bilirubin Dipstick Negative (Negative); Urine Clarity Clear (Clear); Urine Urobilinogen Normal (Normal)
[2021-01-03] MEDS: Magnesium Sulfate 20 GM/500 ML BAG IV (09:56)
[2021-01-03 10:01] LABS: Bacteria 1+ /hpf (None Seen); Squamous Epithelial Cells - UA 0-5 SEEN /hpf (5-10); White Blood Cells 10-25 SEEN /hpf (0-5)
[2021-01-03 10:08] LABS: Amphetamine Urine VISTA NEGATIVE (<1000 ng/mL); Barbiturate Urine VISTA NEGATIVE (< 200 ng/mL); Benzodiazepine Urine VISTA NEGATIVE (< 200 ng/mL); Cocaine Urine VISTA NEGATIVE (< 300 ng/mL); Ecstacy Urine VISTA NEGATIVE (< 500 ng/mL); Methadone Urine VISTA NEGATIVE (< 300 ng/mL); PCP Urine VISTA NEGATIVE (< 25 ng/mL); THC Urine VISTA NEGATIVE (< 50 ng/mL); Vista UDS pH Range 7
--- NOTE | 2021-01-03 13:20 | OB.TRI.HP_ITS ---
HPI - General HPI Narrative UBALDO WEARS, is a 20 F G2, P0 at 31 weeks 5 days presents with labor dilated 1 to 2 cm / 80% effaced and -1. Patient has cerclage placed earlier in the for cervical insufficiency and per [facility] recommendations I removed it at present prior to transport. Patient denies any vaginal bleeding or loss of fluid admitted good movement. Contractions started 2 hours prior to presentation Maternal Data Information JOSE MARIA Calculator Estimated Delivery Date Method Current WG Current Estimate 03/02/21 Ultrasound #1 31w 6d Other Estimates 02/25/21 LMP (Uncertain) 32w 4d PFSH Medical History (Updated 01/03/21 @ 11:[address] Michaela Ellison MD) demise (~03/2020) demise (~03/2020) Home Medications hydroxyprogest(PF)(preg presv) 275 mg/1.1 mL subcut auto-inject 275 mg SC QWEEK 09/21/20 [History Last Taken 12/28/20 10:00] vitamin#30 30 mg iron-10 mg iron-folic acid 1 mg-omg3 capsule 1 cap PO DAILY 10/05/20 [History Last Taken 12/09/20] Allergy/AdvReac Type Severity Reaction Status Date / Time No Known Allergies Allergy Verified 12/07/20 08:36 Family History Other Breast cancer Surgical History S/P appendectomy S/P cholecystectomy Social History adopted: No household members: significant other housing: apartment current occupational status: employed current occupation: [employer] sexually active: Yes second hand exposure: Yes alcohol intake: current details: not while substance use type: does not use caffeine: Yes what type of physical activity do you participate in: none seatbelt use: always do you feel safe at home: Yes additional social history: BF- Javi (Jimmy Coulter) History 2 Elective abortions Hx Para Spontaneous abortions Hx # Term Pregnancies Ectopic pregnancies Hx # Pregnancies 1 Multiple births # of living children 0 Past Pregnancies Del. Date Name GA/Weeks Outcome Route Bth Weight Infant Gen Labor Lgth Anesthesia Del Locatn Provider FOB 03/29/20 Sosa 18 still Female Gayathri [place] Delivery Date: 03/29/20 PPROM, demise at 18 weeks Michaela Ellison Visit Details Expected Delivery Route/Plan Labor Preferences- CB/BF classes: discussed labor support person: Javi labor intervention preferences: pain management options preferred: [] cut cord/dad catch: [] : [] PP control planned: [] discussed possible routes of delivery and associated risks: [] special requests: [] Plans flu vaccine: declined tdap vaccine: thinking about it rhogam: na LARC form signed: [] movement and labor precautions reviewed. Problem list reviewed and updated with the most current plan of care details and appropriate orders placed. Relevant counseling for the gestational age provided. Continue routine care and follow up unless otherwise noted in visit notes/problem list details OB Flowsheet Initial Weight: 115 lb Date -?-?-?-?-?-?-?-?-?-?-?-?- EGA Weight BP Urine Prot -?-?-?-?-?-?-?-?-?-?-?-?- Glucose FHR FuHt Pres Dilation -?-?-?-?-?-?-?-?-?-?-?-?- Effaced St Visit Note 07/09/20 -?-?-?-?-?-?-?-?-?-?-?-?- 6w 2d 115 lb (+0 oz) 112/72 -?-?-?-?-?-?-?-?-?-?-?-?- 120 -?-?-?-?-?-?-?-?-?-?-?-?- SM- CRL 5 mm, wi ll get formal dating us next week 08/06/20 -?-?-?-?-?-?-?-?-?-?-?-?- 10w 2d 118 lb 8 oz (+3 lb 8 oz) 112/66 Negative -?-?-?-?-?-?-?--?-?-?-?-?- Negative 170 -?-?-?-?-?-?-?-?-?-?-?-?- GP - no cramping or bleeding. Discussed elevated anticardiolipin antibodies - plan for lovenox. JOSE MARIA adjusted based on formal dating US. 09/03/20 -?-?-?-?-?-?-?-?-?-?-?-?- 14w 2d 116 lb (+16 oz) 132/72 Negative -?-?-?-?-?-?-?-?-?-?-?-?- Negative -?-?-?-?-?-?-?-?-?-?-?-?- 09/12/20 -?-?-?-?-?-?-?-?-?-?-?-?- 15w 4d 117 lb 8 oz (+2 lb 8 oz) 112/62 Negative -?-?-?-?-?-?-?-?-?-?-?-?- Negative 155 0 -?-?-?-?-?-?-?-?-?-?-?-?- GP - problem vis it for intermittent pressure. Reports intermittent burning with urination. Reports increased discharge. Cx closed. 09/21/20 -?-?-?-?-?-?-?-?-?-?-?-?- 16w 6d 119 lb 2 oz (+4 lb 2 oz) 132/80 Negative -?-?-?-?-?-?-?-?--?-?-?-?- Negative 160 -?-?-?-?-?-?-?-?-?-?-?-?- GP - no cramping or bleeding. Feeling better on antibiotic for UTI. Seeing MFM next week for CL. 10/05/20 -?-?-?-?-?-?-?-?-?-?-?-?- 18w 6d 124 lb (+9 lb) 98/54 Negative -?-?-?-?-?-?-?-?-?-?-?-?- Negative 150 -?-?-?-?-?-?-?-?--?-?-?-?- SM- no vb lof go od fm having pressure- seen yesterday and not dilated, cerclage intact 10/12/20 -?-?-?-?-?-?-?-?-?-?-?-?- 19w 6d 121 lb 9 oz (+6 lb 9 oz) 122/70 Trace -?-?-?-?-?-?-?-?-?-?-?-?- Negative 150 -?-?-?-?-?-?-?-?-?-?-?-?- SM- no vb lof go od fm intermittent ctx and pelvic pressure. cervical length shortened with funneling, stable at present. recommend modified bedrest for the next four weeks until viability and then 10/15/20 -?-?-?-?-?-?-?-?-?-?-?-?- 20w 2d 120 lb 6 oz (+5 lb 6 oz) 116/66 Negative -?-?-?-?-?-?-?-?-?-?-?-?- Negative 150 0 -?-?-?-?-?-?-?-?-?-?-?-?- GP - work in for pressure over weekend. No current pressure or cramping. Denies LOF, VB, DFM. Cx closed. Cerclage in place. 11/01/20 -?-?-?-?-?-?-?-?-?-?-?-?- 22w 5d 126 lb (+11 lb) 108/64 -?-?-?-?-?-?-?-?-?-?-?-?- 161 -?-?-?-?-?-?-?-?-?-?-?-?- -No VB, LOF. R eviewed last [facility] US-cervix stable. Has rpt in q2w. Anxiety stable 11/12/20 -?-?-?-?-?-?-?-?-?-?-?-?- 24w 2d 131 lb 2 oz (+16 lb 2 oz) 116/60 Negative -?-?-?-?-?-?-?-?-?-?-?-?- Negative 156 -?-?-?-?-?-?-?-?-?-?-?-?- -work in for d ecreased FM. Unsure if felt today. Very nervous due to previous 18 wk loss. FHT easily found and also heard movement. Denies vaginal or bladder symptoms. Some discomfort right round ligament and over symphysis pubis. Reassured. Has MFM appt 11/1411/30/20 -?-?-?-?-?-?-?-?-?-?-?-?- 26w 6d 132 lb (+17 lb) 122/86 -?-?-?-?-?-?-?-?-?-?-?-?- 140 -?-?-?-?-?-?-?-?-?-?-?-?- GP - no cramping , LOF, VB, DFM. GCT today. 12/07/20 -?-?-?-?-?-?-?-?-?-?-?-?- 27w 6d 136 lb 2 oz (+21 lb 2 oz) 102/78 -?-?-?-?-?-?-?-?-?-?-?-?- -?-?-?-?-?-?-?-?-?-?-?-?- 12/14/20 -?-?-?-?-?-?-?-?-?-?-?-?- 28w 6d 137 lb (+22 lb) 120/72 -?-?-?-?-?-?-?-?-?-?-?-?- 140 27 -?-?-?-?-?-?-?-?-?-?-?-?- SM-no vb lof goo d fm no regular ctx now 12/17/20 -?-?-?-?-?-?-?-?-?-?-?-?- 29w 2d 138 lb (+23 lb) -?-?-?-?-?-?-?-?-?-?-?-?- 140 -?-?-?-?-?-?-?-?-?-?-?-?- GP - NST for DFM - reactive 12/28/20 -?-?-?-?-?-?-?-?-?-?-?-?- 30w 6d 122/76 -?-?-?-?-?-?-?-?-?-?-?-?- -?-?-?-?-?-?-?-?-?-?-?-?- SM- no vb lof go od fm no 01/03/21 -?-?-?-?-?-?-?-?-?-?-?-?- 31w 5d 139 lb (+24 lb) 123/82 123/82 115/78 114/72 110/66 114/63 111/65 123/69 112/64 Negative mg/dl (Nega tive) -?-?-?-?-?-?-?-?-?-?-?-?- -?-?-?-?-?-?-?-?-?-?-?-?- ROS Constitutional Constitutional: Reports systems reviewed and no addt'l complaints, except as documented and as per HPI ENT HEENT: Reports systems reviewed and no addt'l complaints, except as documented Cardiovascular Cardiovascular: Reports systems reviewed and no addt'l complaints, except as documented Respiratory/Chest Respiratory/Chest: Reports systems reviewed and no addt'l complaints, except as documented Gastrointestinal Gastrointestinal: Reports as per HPI Genitourinary Genitourinary: Reports as per HPI Musculoskeletal Musculoskeletal: Reports systems reviewed and no addt'l complaints, except as documented Integumentary Integumentary: Reports systems reviewed and no addt'l complaints, except as documented Neurologic Neurologic: Reports systems reviewed and no addt'l complaints, except as documented Physical Exam Const alert, oriented x3 and no apparent distress HEENT Head and Scalp: normocephalic and atraumatic Neck full ROM and no lymphadenopathy Chest inspection of chest normal Resp normal respiratory effort GI GI Narrative: gravid, abdomen nontender, AGA Manual OB Exam: dilated 1.5, effaced 80 and station -1 NST FHR Rate Baby A Baseline: 140 Variability:: Moderate Accelerations:: 15 x 15 Decelerations:: None NST Reactive:: Yes FHR Category:: Category I Uterine Activity:: regular q 2-4 Assessment & Plan (1) labor: COMMENT: 01/03 /-1 breech, cerclage removed and transported to [facility]. Indocin, magnesium sulfate, and ampicillin given. (2) Maternal varicella, non-immune: COMMENT: unsure if she's had the chicken pox vaccine (3) Cervical insufficiency during , antepartum: COMMENT: s/p cerclage at 16 weeks with MFM, yadira, and fu with MFM for cervical lengths. (4) GBS (group B streptococcus) UTI complicating : QUALIFIERS: Trimester: third trimester Qualified Code(s): O23.43 - Unspecified infection of urinary tract in , third trimester; B95.1 - Streptococcus, group B, as the cause of diseases classified elsewhere COMMENT: s/p amoxicillin, plan PCN in labor (5) UTI (urinary tract infection), affecting care of mother, antepartum: COMMENT: tx 09/14 (6) Anxiety and depression: COMMENT: no meds at present, encourage counseling (7) History of premature rupture of membranes (PPROM): COMMENT: PPROM 18 weeks in [place]. Saw MFM. Plan progesterone. 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 previous in left horn. Stable Growth 11/14/20 (9) : QUALIFIERS: Weeks of gestation: 31 weeks Qualified Code(s): Z3A.31 - 31 weeks gestation of COMMENT: genetic low risk carrier neg. . afp declined. nl anatomy. (10) Supervision of high risk , antepartum: COMMENT: PRR JOSE MARIA 03/02/21 [facility] (calling him Kevin) [facility] () BF: Javi Joaquin Select Codes Visit Charges Office Visit/Consults: 02207 OV L3 Est Urinary/Genital Urinary/Genital CPT Codes: 43131-46 non-stress test Interp
== END 2021-01-03 11:20 | disposition short-term general hospital (02) ==
LOC: WPOUT 08:51 → WP 08:52
PROVIDERS: Referring Provider Obstetrics & Gynecology; Visit Provider Obstetrics & Gynecology
DX: O60.03 Preterm labor without delivery, third trimester (principal); O09.893 Supervision of other high risk pregnancies, third trimester; Z28.3 Underimmunization status; O34.33 Maternal care for cervical incompetence, third trimester; O23.43 Unspecified infection of urinary tract in pregnancy, third trimester; B95.1 Streptococcus, group B, as the cause of diseases classified elsewhere; O99.343 Other mental disorders complicating pregnancy, third trimester; F41.9 Anxiety disorder, unspecified; F32.9 Major depressive disorder, single episode, unspecified; Q51.3 Bicornate uterus; O09.93 Supervision of high risk pregnancy, unspecified, third trimester; Z3A.31 31 weeks gestation of pregnancy; Z87.59 Personal history of other complications of pregnancy, childbirth and the puerperium
CPT/HCPCS: 96365; 96366; 96368; 36415; 59025; 59050; 76815; 80307; 81001; 85025; 86850; 86900; 86901; 87086; 87088; 94760; 96372; 99218; J7120; G0378; J0702

== ENCOUNTER 2021-01-09 21:53 | Emergency (ER) | payer OTHER, MEDICAID, SELFPAY ==
[2021-01-03 08:57] VITALS: BMI 23.8
[2021-01-09 21:53] VITALS: BP 131/82; PULSE 81; RESP 18; TEMP 36.3; O2SAT 97; BMI 24.3
--- NOTE | 2021-01-09 22:36 | EDS_ITS ---
HPI History of Present Illness Chief Complaint: Headache Narrative Narrative: Patient presents with headache after spinal anesthesia. She was discharged yesterday from [facility] after noncomplicated since. When she was on her way home she started experiencing positional headache. When she lays down she is fine but when she stands up she gets diffuse pain in her head aching and throbbing as well as her neck. Denies any visual symptoms. No history of spinal headaches in the past. She has had one previous epidural remotely without a spinal headache. She has been using ibuprofen and oxycodone with moderate leaf of symptoms however laying flat she is okay but getting up she is not. She called her ACCELERATOR OPERATOR who told her to come in for further evaluation. She has been trying to drink coffee. [facility] Medical History (Updated 01/10/21 @ 00:[address] Jose De Jesus Urbina MD) demise (~03/2020) demise (~03/2020) Home Medications NK 01/09/21 [History Last Taken Unknown] Allergy/AdvReac Type Severity Reaction Status Date / Time No Known Allergies Allergy Verified 01/09/21 22:01 Family History Other Breast cancer Surgical History S/P appendectomy S/P cholecystectomy Social History adopted: No household members: significant other housing: apartment current occupational status: employed current occupation: [employer] sexually active: Yes Smoking Status: Never smoker second hand exposure: Yes alcohol intake: current details: not while substance use type: does not use caffeine: Yes what type of physical activity do you participate in: none seatbelt use: always do you feel safe at home: Yes additional social history: BF- Javi (Jimmy Coulter) ROS ROS ED ROS Narrative ROS General: Denies fever, chills, sweats Eyes: Denies visual changes, blurred vision, double vision ENT: Denies ear pain, rhinorrhea, sore throat Cardiovascular: Denies chest pain, palpitations, heart racing Respiratory: Denies dyspnea, cough, sputum, dyspnea on exertion, orthopnea,PND GI: Denies abdominal pain, nausea, vomiting, diarrhea, constipation, melena : Denies dysuria, hematuria, frequency Musculoskeletal: Denies myalgias, arthralgias, neck pain, back pain Skin: Denies rash, abscess, abrasions Neuro: See HPI Psych: Denies depression, anxiety Endo: Denies polyuria, polydipsia, polyphagia Heme: Denies easy bruising, easy bleeding, lymphadenopathy Allergy: Denies hives, swelling EXAM Physical Exam Narrative Exam Narrative: Vital signs reviewed General: Well-nourished well-developed Head: Normocephalic atraumatic Eyes: Pupils equal round and reactive to light extraocular movements intact ENT: TMs clear no hemotympanum no trauma Neck: Nontender full range of motion no meningeal signs. Cardiovascular: Regular rate rhythm no murmurs normal S1-S2 Respiratory: No distress clear to auscultation bilaterally chest nontender Abdomen: Soft nontender nondistended normal bowel sounds no masses Back: Nontender no CVA tenderness Extremities: Nontender active range of motion ?4 extremities no trauma Skin: Normal color no trauma Neuro alert oriented cranial nerves II through XII intact normal strength sensation reflexes Const Vital Signs: 01/09/21 21:53 Temperature 97.4 F L Temperature Source Temporal Pulse Rate 81 Respiratory Rate 18 Blood Pressure 131/82 H Blood Pressure Mean 98 Pulse Ox 97 Oxygen Delivery Method Room Air MDM MDM MDM Narrative Medical decision making narrative: I believe she has a spinal headache. It is quite positional. She has minimal pain at rest laying flat. Given IV fluids caffeine and Toradol. Sitting comfortably. She feels better. She would like to go home. I did offer her a blood patch evaluation by anesthesia versus transfer for blood patch evaluation which I suspect she has a spinal headache. She would like to go home continue her regimen and follow-up with her ACCELERATOR OPERATOR. I do not think she has meningitis. She is nontoxic. Discharge Plan Triage Chief Complaint: Headache ED Provider: Jose De Jesus Urbina Dx/Rx/DC Orders Clinical Impression: Spinal headache Instructions: ED Headache Post Spinal Tap No Patc Prescriptions: No Action NK RF: 0 Primary Care Provider: Care Physician,No Primary Referrals: Care Physician,No Primary [Primary Care Provider] - Doctor,Your [STAFF PHYSICIAN] - (Follow with your ACCELERATOR OPERATOR) Disposition Disposition: Home, self care
[2021-01-09] MEDS: Ketorolac 15 MG/ML Vial IV (22:41)
[2021-01-09] MEDS: 0.9% Normal Saline 1,000 ML 1000 ML IV (22:42)
[2021-01-10 00:51] VITALS: PULSE 79; RESP 18; O2SAT 99
== END 2021-01-10 00:51 | disposition home or self-care (01) ==
PROVIDERS: Emergency Provider Emergency Medicine
DX: O89.4 Spinal and epidural anesthesia-induced headache during the puerperium (principal)
CPT/HCPCS: 96361; 96374; 96375; 99283; J7030; A4216

== ENCOUNTER 2021-11-06 16:30 | Outpatient (CLI) | payer BC, MEDICAID, SELFPAY ==
--- NOTE | 2021-11-06 16:33 | US_ITS ---
EXAM: US pelvis, OB less than 14 weeks. HISTORY: dating TECHNIQUE: US OB Transvaginal COMPARISON: July 18, 2020. There was a in the right uterine horn on prior exam. LIMITATIONS: None. UTERUS Size: 9 cm x 7.8 cm x 4 cm. Bicornuate, with in the left horn. 1.5 cm right fundal endometrial stripe. Masses: None. Gestational sac: Single gestational sac. Mean sac diameter 1.3 cm consistent with 6 weeks 0 day gestation. Subchorionic hemorrhage: None. Yolk sac: Identified and normal. 3 mm. pole: Tyhee-rump length is 4 mm corresponding to 6 weeks 1 day. Cardiac activity: heart rate is 105 beats per minute. OVARIES/ADNEXA Right: 3.5 cm x 1.2 cm x 1.6 cm. Documented blood flow. Left: 3.5 cm x 2.2 cm x 2.4 cm. Documented blood flow. Suspected 2.2 cm x 1.3 cm x 2 cm isoechoic corpus luteum. OTHER: None. CONCLUSION: Early single live IUP. Sonographic age 6 weeks 1 day. Bicornuate uterus, in the left fundal colon. Left ovarian presumed corpus luteum. Electronically Signed: Jonelle Denson MD at 20:13 EDT , US/Transvaginal w/Preg US
== END 2021-11-06 23:59 | disposition home or self-care (01) ==
LOC: US 16:32
PROVIDERS: Referring Provider Obstetrics & Gynecology; Visit Provider Obstetrics & Gynecology
DX: N91.2 Amenorrhea, unspecified (principal)
CPT/HCPCS: 76817

== ENCOUNTER → 2021-12-03 | Outpatient (CLI) | payer BC, MEDICAID, SELFPAY ==
[2021-12-03 17:36] LABS: Absolute Lymphocyte Count 1.97 X10^3/uL (0.83-4.51); Absolute Neutrophil Count 7.1 X10^3/uL (2.0-7.7); Basophil# 0.06 X10^3/uL; Basophil% 0.6 % (0-1); Eosinophil# 0.05 X10^3/uL; Eosinophils% 0.5 % (0-5); Hematocrit 35.7 % (37-47); Hemoglobin 12.1 g/dL (12.0-15.0); Lymphocyte # 1.97 X10^3/ul (0.83-4.51); Lymphocyte % 19.2 % (19-41); Mean Corp Hgb Conc 33.9 g/dL (32-36); Mean Corpuscular Hgb 30.7 pg (27.0-32.0); Mean Corpuscular Volume 90.6 fL (81-99); Mean Platelet Vol. 9.9 fl (6.2-12.0); Monocyte# 1.03 X10^3/uL; NRBC Flagged by Analyzer 0 % (0-5); Neutrophil # 7.11 X10^3/uL (2.7-7.7); Neutrophil % 69.3 % (47-70); Platelet Count 284 K/mm3 (150-450); RBC Distribution Width CV 11.6 % (11.6-14.6); RBC Distribution Width SD 38.5 fl (35.1-43.9); Red Blood Count 3.94 M/mm3 (4.2-5.4); White Blood Count 10.3 K/mm3 (4.4-11.0)
[2021-12-03 18:42] LABS: Amphetamine Urine VISTA NEGATIVE (<1000 ng/mL); Barbiturate Urine VISTA NEGATIVE (< 200 ng/mL); Benzodiazepine Urine VISTA NEGATIVE (< 200 ng/mL); Cocaine Urine VISTA NEGATIVE (< 300 ng/mL); Ecstacy Urine VISTA NEGATIVE (< 500 ng/mL); Methadone Urine VISTA NEGATIVE (< 300 ng/mL); PCP Urine VISTA NEGATIVE (< 25 ng/mL); THC Urine VISTA NEGATIVE (< 50 ng/mL); Vista UDS pH Range 5
[2021-12-04 08:31] LABS: HIV - WCH Non-Reactive (Nonreactive); Hepatitis B Surface Antigen Non-Reactive (Nonreactive); Hepatitis C Antibody Non-Reactive (Nonreactive); Rubella IgG Reactive (Nonreactive); Syphilis Antibodies Non-reactive
[2021-12-05 22:06] LABS: Chlamydia By Nucleic Acid AMP Negative (Negative)
[2021-12-06 12:52] LABS: Gonococcus By Nucleic Acid AMP Negative (Negative)
[2021-12-11 11:31] LABS: HPV Reflexed? NOT INDICATED
== END | disposition home or self-care (01) ==
PROVIDERS: Referring Provider Obstetrics & Gynecology; Visit Provider Obstetrics & Gynecology
DX: Z34.90 Encounter for supervision of normal pregnancy, unspecified, unspecified trimester (principal); Z12.4 Encounter for screening for malignant neoplasm of cervix
CPT/HCPCS: 36415; 80307; 85025; 86703; 86762; 86780; 86803; 86850; 86900; 86901; 87086; 87088; 87340; 87491; 87591; 88175; G0145

== ENCOUNTER 2022-01-02 10:59 | Emergency (ER) | payer BC, MEDICAID, SELFPAY ==
[2022-01-02 10:59] VITALS: BP 132/83; PULSE 67; RESP 16; TEMP 36.2; O2SAT 100; BMI 19.8
--- NOTE | 2022-01-02 11:13 | EKG12_ITS ---
Test Reason : CP Blood Pressure : / mmHG Vent. Rate : 057 BPM Atrial Rate : 057 BPM P-R Int : 132 ms QRS Dur : 082 ms QT Int : 396 ms P-R-T Axes : 044 062 044 degrees QTc Int : 385 ms Sinus bradycardia Otherwise normal ECG Confirmed by SOBEIDA SOTOMAYOR MD ([id number]), makeup editor KYLER GONZALES ([id number]) on 01/03/2022 10:11:59 AM Referred By: SARAHI Confirmed By:SOBEIDA SOTOMAYOR MD
--- NOTE | 2022-01-02 11:24 | EDS_ITS ---
HPI History of Present Illness Chief Complaint: Chest Pain Narrative Narrative: 21-year-old female presenting with chest pain. She describes it as a band around her chest. She does not describe it as sharp or pleuritic. Its not worse with deep inspiration. Patient currently 15 weeks . She states she had a cerclage placed a couple of days ago at [facility] because she has a short cervix. She denies any vaginal bleeding, vaginal discharge, urinary complaints. She states she does not have any abdominal pain. She does not have a cough or shortness of breath. No fever or chills. She has nausea without vomiting but attributes this to her . She states that during her previous she was diagnosed with antiphospholipid syndrome and was started on Lovenox shots but then was told later after a couple of months she was diagnosed inaccurately and these shots were discontinued. No history of DVT/PE. [facility] Medical History Bicornuate uterus delivery delivered demise (~03/2020) Home Medications vitamin #56-iron 35 mg and 5 mg-folic acid 1 mg-dha capsule 1 cap PO DAILY 11/12/21 [History Last Taken Unknown] Allergy/AdvReac Type Severity Reaction Status Date / Time No Known Allergies Allergy Verified 01/02/22 11:02 Family History Other Breast cancer Surgical History S/P appendectomy S/P cholecystectomy Social History adopted: No household members: significant other housing: house current occupational status: employed current occupation: [employer] current occupational exposures/hazards: No pets and animals: Yes (L[employer] Retreiver- Alexandrea 2.5 years old) pets and animals: dog(s) history of recent travel: No sexually active: Yes Smoking Status: Never smoker second hand exposure: Yes alcohol intake: current details: not while substance use type: does not use caffeine: Yes what type of physical activity do you participate in: walking seatbelt use: always do you feel safe at home: Yes additional social history: BF- Javi (Shana Coulter) Patient works for [employer] ROS ROS ED Constitutional Constitutional ED: Denies chills or fever(s) Eyes Eyes: Denies blurry vision or change in vision ENT ENT ED: Denies rhinorrhea Cardiovascular Cardiovascular: Reports as per HPI Respiratory/Chest Respiratory/Chest: Denies cough or dyspnea Gastrointestinal Gastrointestinal: Reports nausea; Denies abdominal pain, constipation, diarrhea or vomiting Genitourinary Genitourinary ED: Denies dysuria or hematuria Musculoskeletal Musculoskeletal: Denies arthralgias, back pain, myalgias or neck pain Integumentary Denies rash Neurologic Neurologic: Denies headache(s) or weakness Psychiatric Psychiatric: Denies anxiety or depression Endocrine Endocrinology: Denies polydipsia or polyuria EXAM Physical Exam Const Vital Signs: 01/02/22 10:59 01/02/22 12:10 Temperature 97.2 F L Temperature Source Temporal Pulse Rate 67 Respiratory Rate 16 Respiratory Effort Normal Blood Pressure 132/83 H Blood Pressure Mean 99 Pulse Ox 100 Oxygen Delivery Method Room Air Room Air Positive well developed General Appearance ED: well developed and NAD; Negative for pallor HEENT Reports moist mucous membranes normocephalic and atraumatic Eyes PERRL and EOMs intact bilaterally Chest Wall inspection of chest normal and palpation of chest normal Resp normal respiratory effort and clear to auscultation bilaterally Effort and Inspection: respiratory distress Cardio regular rhythm Rate: bradycardia GI normal to inspection, nondistended, normoactive bowel sounds Extremity normal to inspection General Extremety ED: Negative for edema or tenderness General Extremity: Negative for edema Neuro oriented x3, CN's II-XII intact bilaterally and no sensory deficits noted Sensorium / Orientation: awake and alert Motor Exam: strength 5/5 throughout Psych mental status grossly normal Skin no rashes or lesions noted General Skin Exam: Negative for jaundice or pallor Heart Score History: Slightly/Non-Suspicious ECG: Normal Age: </= 45 years Risk Factors: No Risk Factors Troponin: </= Normal Limit Score: 0 MDM MDM MDM Narrative Medical decision making narrative: Patient with some chest pain which does not sound pleuritic or sharp in nature. She is not having shortness of breath. She describes it as a band around her chest. She is currently symptom-free. EKG on my interpretation shows sinus bradycardia with a ventricular to 57 bpm patient without sign of ischemic change or dysrhythmia. Chest x-ray on my interp retation shows no acute cardiopulmonary process. CBC and BMP unremarkable. High-sensitivity troponin is less than 3. Since this is ongoing since last evening I do not believe she needs a delta troponin. Given her heart rate is 57, O2 sat 100% on room air, respiratory rate 16 I have a low clinical suspicion for PE. We did discuss this and the patient feels comfortable with my medical decision making. Since her cardiac work-up is ultimately negative. I feel she is safe to be discharged home. Patient will follow up with OB. Return precautions were discussed. Impression: 1. Chest pain?noncardiac Lab Data Attestation: I reviewed the patient's lab results. Labs: Laboratory Results - last 24 hr 01/02/22 01/02/22 11:20 11:20 WBC 7.6 RBC 4.33 Hgb 13.4 Hct 38.5 MCV 88.9 MCH 30.9 MCHC 34.8 RDW Std Deviation 36.7 RDW Coeff of Anthony 11.4 L Plt Count 288 MPV 9.7 Immature Gran % (Auto) 0.300 Neut % (Auto) 74.2 H Lymph % (Auto) 17.4 L Alfalfa % (Auto) 7.1 Eos % (Auto) 0.5 Baso % (Auto) 0.5 Absolute Neuts (auto) 5.6 Absolute Lymphs (auto) 1.32 Nucleated RBC % 0 Sodium 138 Potassium 3.6 Chloride 104 Carbon Dioxide 28.0 Anion Gap 6 BUN 7 Creatinine 0.68 Estim Creat Clear Calc 104.96 Est GFR (MDRD) Af Amer 139 Est GFR (MDRD) Non-Af 115 BUN/Creatinine Ratio 10.3 Glucose 79 Calcium 8.8 Troponin I High Sens < 3 L Radiography Diagnostic Testing: Clinical Impression(s) from Imaging Studies Chest X-Ray 01/02/22 11:45 IMPRESSION: Nonacute portable x-ray examination of the chest. Electronically Signed: Roman Ray MD (Brooks) at 12:03 EDT Reading Location ID and State: [facility] / [place] , Service support , Discharge Plan Triage Chief Complaint: Chest Pain ED Provider: Darwin Loo Dx/Rx/DC Orders Instructions: ED Chest Pain, Noncardiac Prescriptions: No Action PNV #67-thxw-wyozo acid-dha 35 mg iron-5 mg iron-1 mg capsule 1 cap PO DAILY RF: 0 Primary Care Provider: Care Physician,No Primary Referrals: Michaela Ellison MD [STAFF PHYSICIAN] - As Needed Care Physician,No Primary [Primary Care Provider] - Disposition Disposition: Home, Self Care
[2022-01-02 11:32] LABS: Absolute Lymphocyte Count 1.32 X10^3/uL (0.83-4.51); Absolute Neutrophil Count 5.6 X10^3/uL (2.0-7.7); Basophil# 0.04 X10^3/uL; Basophil% 0.5 % (0-1); Eosinophil# 0.04 X10^3/uL; Eosinophils% 0.5 % (0-5); Hematocrit 38.5 % (37-47); Hemoglobin 13.4 g/dL (12.0-15.0); Lymphocyte # 1.32 X10^3/ul (0.83-4.51); Lymphocyte % 17.4 % (19-41); Mean Corp Hgb Conc 34.8 g/dL (32-36); Mean Corpuscular Hgb 30.9 pg (27.0-32.0); Mean Corpuscular Volume 88.9 fL (81-99); Mean Platelet Vol. 9.7 fl (6.2-12.0); Monocyte# 0.54 X10^3/uL; Monocyte% 7.1 % (0-10); NRBC Flagged by Analyzer 0 % (0-5); Neutrophil # 5.61 X10^3/uL (2.7-7.7); Neutrophil % 74.2 % (47-70); Platelet Count 288 K/mm3 (150-450); RBC Distribution Width CV 11.4 % (11.6-14.6); RBC Distribution Width SD 36.7 fl (35.1-43.9); Red Blood Count 4.33 M/mm3 (4.2-5.4); White Blood Count 7.6 K/mm3 (4.4-11.0)
--- NOTE | 2022-01-02 11:45 | RAD_ITS ---
STUDY: X-RAY CHEST REASON FOR EXAM: Female, 21 years old. chest pain TECHNIQUE: AP COMPARISON: None. FINDINGS: The lungs are clear and expanded. There is no demonstrated pleural abnormality. Normal size heart. Normal mediastinum and jayce. Normal visualized pulmonary arteries. Normal visualized aortic arch and descending thoracic aorta. Normal visualized thoracic spine. Normal visualized ribs, clavicles, and shoulders. There is no demonstrated abnormality of the visualized soft tissue structures of the upper abdomen. RAD/Chest 1 View (Portable) IMPRESSION: Nonacute portable x-ray examination of the chest. Electronically Signed: Roman Ray MD (Brooks) at 12:03 EDT ,
[2022-01-02 11:50] LABS: Anion Gap 6 (5-15); BUN 7 mg/dL (7-18); BUN/Creat Ratio 10.3 RATIO (10-20); Calcium,Total 8.8 mg/dL (8.5-10.1); Chloride 104 mmol/L (98-107); Creatinine, Serum 0.68 mg/dL (0.55-1.02); EST Glomerular Filtration Rate 115 mL/min (>60); Est Glom Filt Rate - Afr Amer 139 mL/min (>60); Estimated Creatinine Clearance 104.96 ml/min; Glucose 79 mg/dL (74-106); Potassium 3.6 mmol/L (3.5-5.1); Sodium Level 138 mmol/L (136-145); Troponin-I HS (w/2H Reflex) < 3 pg/mL (3.0-54.0)
[2022-01-02 12:35] VITALS: PULSE 48; RESP 16; O2SAT 98
[2022-01-02 13:28] LABS: Reflex Troponin-HS? (from REC) Y
== END 2022-01-02 12:36 | disposition home or self-care (01) ==
PROVIDERS: Emergency Provider Student in an Organized Health Care Education/Training Program; Visit Provider Student in an Organized Health Care Education/Training Program
DX: O99.891 Other specified diseases and conditions complicating pregnancy (principal); R00.1 Bradycardia, unspecified; Z3A.15 15 weeks gestation of pregnancy; R07.9 Chest pain, unspecified; O34.02 Maternal care for unspecified congenital malformation of uterus, second trimester; Q51.3 Bicornate uterus
CPT/HCPCS: 71045; 80048; 84484; 85025; 93005; 99283

== ENCOUNTER → 2022-01-30 | Outpatient (CLI) | payer BC, MEDICAID, SELFPAY | END | disposition home or self-care (01) | LOC: LABSPEC 16:55 | PROVIDERS: Visit Provider Obstetrics & Gynecology | DX: N76.0 Acute vaginitis (principal) | CPT/HCPCS: 87070; 87205 ==

== ENCOUNTER 2022-03-12 00:55 | Outpatient (CLI) | payer BC, MEDICAID, SELFPAY ==
[2022-03-12] VITALS (41 sets, daily range): BP systolic 98–126; BP diastolic 51–69; PULSE 54–82; RESP 16–18; TEMP 36.1–36.6; O2SAT 93–100; BMI 21.6
[2022-03-12] MEDS: Lactated Ringers 1,000 ML 999 ML IV (01:30)
[2022-03-12] MEDS: Betamethasone/Betamethasone 30 MG/5 ML Vial 12 MG IM (01:38)
[2022-03-12 01:41] LABS: Absolute Lymphocyte Count 2.39 X10^3/uL (0.83-4.51); Absolute Neutrophil Count 9.3 X10^3/uL (2.0-7.7); Basophil# 0.06 X10^3/uL; Basophil% 0.5 % (0-1); Eosinophil# 0.07 X10^3/uL; Eosinophils% 0.5 % (0-5); Hematocrit 36.9 % (37-47); Hemoglobin 12.5 g/dL (12.0-15.0); Lymphocyte # 2.39 X10^3/ul (0.83-4.51); Lymphocyte % 18.8 % (19-41); Mean Corp Hgb Conc 33.9 g/dL (32-36); Mean Corpuscular Hgb 30.2 pg (27.0-32.0); Mean Corpuscular Volume 89.1 fL (81-99); Mean Platelet Vol. 9.7 fl (6.2-12.0); Monocyte# 0.85 X10^3/uL; Monocyte% 6.7 % (0-10); NRBC Flagged by Analyzer 0 % (0-5); Neutrophil # 9.31 X10^3/uL (2.7-7.7); Platelet Count 280 K/mm3 (150-450); RBC Distribution Width CV 11.3 % (11.6-14.6); RBC Distribution Width SD 36.3 fl (35.1-43.9); Red Blood Count 4.14 M/mm3 (4.2-5.4); White Blood Count 12.7 K/mm3 (4.4-11.0)
[2022-03-12 01:59] LABS: ROM Internal Control Test YES-OK TO RESULT pt. (Internal QC); ROM Patient Test Negative (Negative)
[2022-03-12] MEDS: Magnesium Sulfate 4gm/100mL 4 GM/100 ML IV.SOLN. IV (02:08)
--- NOTE | 2022-03-12 02:15 | NURSING ---
Seizure precautions d/t magnesium sulfate administration.
--- NOTE | 2022-03-12 02:25 | OB.TRI.HP_ITS ---
HPI - General General Date of Admission: 03/12/22 HPI Narrative UBALDO FLOREZS, is a 21 y/o @ 24 weeks 1 day who presents to L&D with pressure and contractions. She has a h/o cerclage placement for prior history of 18 week pprom and 32 week delivery with subsequent section. She is unsure if her membranes are ruptured. Rom plus here is negative. Maternal Data Information JOSE MARIA Calculator Estimated Delivery Date Method Current WG Current Estimate 07/01/22 Ultrasound #1 24w 1d Other Estimates 07/07/22 LMP (Uncertain) 23w 2d 07/07/22 Manual 23w 2d PFSH PFSH Medical History Bicornuate uterus delivery delivered demise (~03/2020) Home Medications vitamin #56-iron 35 mg and 5 mg-folic acid 1 mg-dha capsule 1 cap PO DAILY 11/12/21 [History Last Taken Unknown] Allergy/AdvReac Type Severity Reaction Status Date / Time No Known Allergies Allergy Verified 02/25/22 16:22 Family History Other Breast cancer Surgical History S/P appendectomy S/P cholecystectomy Social History adopted: No household members: significant other housing: house current occupational status: employed current occupation: [employer] current occupational exposures/hazards: No pets and animals: Yes (Lopez Nithyaeijessica- Alexandrea 2.5 years old) pets and animals: dog(s) history of recent travel: No sexually active: Yes Smoking Status: Never smoker second hand exposure: Yes alcohol intake: current details: not while substance use type: does not use caffeine: Yes what type of physical activity do you participate in: walking seatbelt use: always do you feel safe at home: Yes additional social history: BF- Javi (Shana Luisoster) 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 Date Name GA/Weeks Outcome Route Bth Weight Gen Labor Lgth Anesthesia Del Locatn Provider FOB Unknown 01/06/21 Daisy Armstrong 32 live - prete rm 3lbs 11oz Male spinal [facility] unknown Javi 03/29/20 Sosa 18 still Female none [place] Javi Delivery Date: Last Updated by: Michaela Ellison MD c/s for breech presentation, cerclage, progesterone Delivery Date: 03/29/20 Last Updated by: Michaela Ellison MD PPROM, demise at 18 weeks Visit Details Expected Delivery Route/Plan RLTCS Plans Covid status: discussed Flu vaccine: discussed Tdap vaccine: [] Rhogam: [] LARC form signed: [] Problem list reviewed and updated with the most current plan of care details and appropriate orders placed. Relevant counseling for the gestational age provided. Continue routine care and follow up unless otherwise noted in visit notes/problem list details OB Flowsheet Initial Weight: 110 lb Date -?-?-?-?-?-?-?-?-?-?-?-?- EGA Weight BP Urine Prot -?-?-?-?-?-?-?-?-?-?-?-?- Glucose FHR FuHt Pres Dilation -?-?-?-?-?-?-?-?-?-?-?-?- Effaced St Visit Note 12/03/21 -?-?-?-?-?-?-?-?-?-?-?-?- 10w 0d 112 lb (+2 lb) 92/56 -?-?-?-?-?-?-?-?-?-?-?-?- 170 -?-?-?-?-?-?-?-?-?-?-?-?- SM- preivous us at hospital, pos yeast infection treat with OTC monistat 01/22/22 -?-?-?-?-?-?-?-?-?-?-?-?- 17w 1d 113 lb (+3 lb) 122/60 -?-?-?-?-?-?-?-?-?-?-?-?- 146 -?-?-?-?-?-?-?-?-?-?-?-?- MH-Had light spo tting about 1 week after cerclage and none since. It was placed 12/31. Using vaginal progesterone. Has MFM follow ups scheduled. 01/30/22 -?-?-?-?-?-?-?-?-?-?-?-?- 18w 2d 116 lb (+6 lb) 110/58 Trace -?-?-?-?-?-?-?-?-?-?-?-?- Negative 147 0 -?-?-?-?-?-?-?-?-?-?-?-?- JV- pt is here d ue to cramping today. On exam she has an extensive yeast infection and is already status post monistat therapy. will try diflucan. culture collected. cx is closed and cerclage in place. 02/25/22 -?-?-?-?-?-?-?-?-?-?-?-?- 22w 0d 121 lb (+11 lb) 106/62 Negative -?-?-?-?-?-?-?-?-?-?-?-?- Negative 150 -?-?-?-?-?-?-?-?-?-?-?-?- JV- no lof, vagi nal bleeding, or dec fm. she has an appt with mfm next week. ROS Constitutional Constitutional: Reports systems reviewed and no addt'l complaints, except as documented Gastrointestinal Gastrointestinal: Denies bloating, constipation, cramping, diarrhea, nausea or vomiting Genitourinary Genitourinary: Reports other Details: Denies vaginal odor, vaginal bleeding, or vaginal discharge ; Denies difficulty urinating or flank pain Physical Exam HEENT normocephalic Resp normal respiratory effort and normal air movement no CVA tenderness Manual OB Exam: other vertex on ultrasound. Spec exam shows cerclage in place. long q-tip used and showed a light pink discharge. no pooling of fluid. cx digitally closed Amniotic Fluid: no amniotic fluid noted, ROM+plus negative - and other Extremity normal to inspection General Extremity: edema bilateral (trace ) NST FHR Rate Baby A Baseline: 140 Variability:: Moderate Accelerations:: 15 x 15 Decelerations:: None NST Reactive:: Yes FHR Category:: Category I Assessment & Plan (1) Cervical cerclage suture present: (2) labor: COMMENT: transfer to [facility] 03/12/22 (3) Susceptible to varicella (non-immune), currently : COMMENT: previously non immune by lab, confirm vaccination status (4) History of delivery: COMMENT: cerclage 12/31/21, progesterone if recommended by [facility]. Growth US every 4 weeks per [facility] 03/03 nl growth (5) : QUALIFIERS: Weeks of gestation: 22 weeks Qualified Code(s): Z3A.22 - 22 weeks gestation of COMMENT: genetic and carrier screening discussed. Anatomy US normal (6) Supervision of high-risk : COMMENT: PRR JOSE MARIA 07/01/22 PC Violet, (Sosa-jul) boyfrienrenny Caldwell (7) History of loss: COMMENT: 18 week pprom in [place]. third trimester testing (8) Cervical insufficiency in , antepartum: COMMENT: h/o cerclage, plan [facility] consult for cerclage placement (9) Previous delivery affecting : COMMENT: bicornuate uterus. previously in right horn with cse ction. current in left horn. plan RLTCS (10) Anxiety and depression: COMMENT: no current management, no counseling at this time PLAN: Plan labor- contractions spacing out to q 5 minutes from q 3 minutes after 500 LR bolus -start indocin 50 mg now -start magnesium sulfate bolus 6 grams now -Dr. Alarcon at [facility] accepting transport Charges/Coding Multi Select Codes Visit Charges Office Visit/Consults: 05803 OV L3 Est Urinary/Genital Urinary/Genital CPT Codes: 82596-95 non-stress test Interp
[2022-03-12] MEDS: Magnesium Sulfate 4gm/100mL 2 GM/50 ML IV.SOLN. IV (02:28)
[2022-03-12] MEDS: Indomethacin 25 MG Capsule 50 MG PO (02:46)
[2022-03-12] MEDS: Magnesium Sulfate 20 GM/500 ML BAG IV (02:47)
--- NOTE | 2022-03-12 02:57 | NURSING ---
Up to restroom x3, voided each time. This RN offered bed jordan. Pt. attempted to use but wasn't able to void d/t being uncomfortable on jordan, so bedside commode offer for next time pt. feels urge to void. Pt. educated to call out before getting up.
--- NOTE | 2022-03-12 03:17 | NURSING ---
This RN remains at bedside while Azeb Beasley, transmitter engineer in charge, arranges transport and calls report to accepting hospital.
--- NOTE | 2022-03-12 03:37 | NURSING ---
0215 [facility] called. requested transfer to [facility] due to 24.1 weeks pre-term labor, [facility] stated they are unable to transport pt due to needing a critical care unit, RN informed them cervix is closed and pt is stable. 0220 [place] [facility] rubber tire and tubes supervisor called and updated [facility] states unable to transfer pt, plan for RN to call [facility]. 0222 [facility] transport called. updated on order to transfer to [facility], [facility] declined transfer as no critical care unit available 022 flood control engineer rubber tire and tubes supervisor updated. plan to escalate [phone] [facility] transfer center line called, updated on need to transfer to [facility], states unable to transfer due to not having a critical care unit unit available, RN reinforced pt and baby are stable at this time 0240 packing house supervisor updated. plan to escalate to tier 3 [phone] physician president of [facility] transport called, no answer, message left to call [facility] due to having an order to transport pt to [facility] 0245 packing house supervisor called and updated, plan to call [facility] transport 0247 remains on unit. updated on above, still attempting to arrange transport 0254 [facility] Transport line called by this RN. on line (accepting physician) [facility] unable to transport, conference call made with Dr. Malcolm, to [facility], [facility] unable to transport. Pt to be transported via air per . aware 0257 packing house supervisor updated pt to be transported via air, RN to call [facility] 0258 [facility] called for transport 0305 patient updated 0309 Report called by this RN to Zaynab RN at [facility] labor and delivery 0314 [facility] called this RN, pilots will not fly due to weather, [facility] states will call [facility] to see if they will transport pt via air 0316 [facility] nursing rubber tire and tubes supervisor updated 0330 [facility] called this RN, [facility] will not transport via air due to weather 0334 [facility] called again, requested ground transport to [facility], RN reinforce pt is stable, contractions have stopped. pt no longer painful, FHR stable, physicians employee states will discuss again with rubber tire and tubes supervisor 0345 [facility] called back, accepting transfer to [facility]. ETA 45 mins
[2022-03-12 04:05] LABS: Probe Check PASS
[2022-03-12 04:06] LABS: Group B Strep DNA By PCR POSITIVE (Negative)
--- NOTE | 2022-03-12 05:26 | NURSING ---
0447 [facility] here, report given 0520 [facility] transporting pt to [facility]. pt off unit at this time 0524 Zaynab ARANDA at [facility] labor and delivery called, report given,updated pt in route to their unit
--- NOTE | 2022-03-12 06:31 | NURSING ---
0530 updated [facility] transporting pt to [facility] Labor and delivery unit. pt off unit at 0520
== END 2022-03-12 05:20 | disposition short-term general hospital (02) ==
LOC: WPOUT 01:01 → WP 01:03
PROVIDERS: Obstetrics & Gynecology; Visit Provider Obstetrics & Gynecology
DX: O60.02 Preterm labor without delivery, second trimester (principal); O34.32 Maternal care for cervical incompetence, second trimester; O34.02 Maternal care for unspecified congenital malformation of uterus, second trimester; Q51.3 Bicornate uterus; Z3A.24 24 weeks gestation of pregnancy; O99.342 Other mental disorders complicating pregnancy, second trimester; F41.9 Anxiety disorder, unspecified; F32.A Depression, unspecified
CPT/HCPCS: 96361; 96374; 36415; 59050; 76815; 84112; 85025; 87653; 94760; 96372; 99218; J7120; G0378; J0702

== ENCOUNTER 2022-05-12 04:10 | Inpatient (IN) | payer BC, MEDICAID, SELFPAY ==
[2022-05-11 22:30] VITALS: PULSE 105; O2SAT 98
[2022-05-11 22:33] VITALS: BP 132/79; PULSE 106
[2022-05-11 22:35] VITALS: PULSE 82; O2SAT 96
[2022-05-11 22:58] VITALS: BMI 23.3
[2022-05-11 23:03] VITALS: BP 122/68; PULSE 90
[2022-05-11 23:08] VITALS: BP 122/68; PULSE 88; TEMP 37.7; O2SAT 98
[2022-05-11 23:24] LABS: ROM Internal Control Test YES-OK TO RESULT pt. (Internal QC); ROM Patient Test Negative (Negative)
[2022-05-11] MEDS: Lactated Ringers 1,000 ML 999 ML IV (23:51)
[2022-05-11] MEDS: Betamethasone/Betamethasone 30 MG/5 ML Vial 12 MG IM (23:51)
[2022-05-11] MEDS: NIFEdipine 10 MG Capsule PO (23:58)
[2022-05-12] VITALS (20 sets, daily range): BP systolic 103–127; BP diastolic 43–76; PULSE 53–103; RESP 15–18; TEMP 36.4–36.7; O2SAT 98–100
[2022-05-12 00:03] LABS: Absolute Lymphocyte Count 1.97 X10^3/uL (0.83-4.51); Absolute Neutrophil Count 8.4 X10^3/uL (2.0-7.7); Basophil# 0.03 X10^3/uL; Basophil% 0.3 % (0-1); Eosinophil# 0.08 X10^3/uL; Eosinophils% 0.7 % (0-5); Hematocrit 34.2 % (37-47); Hemoglobin 11.4 g/dL (12.0-15.0); Lymphocyte # 1.97 X10^3/ul (0.83-4.51); Lymphocyte % 17.4 % (19-41); Mean Corp Hgb Conc 33.3 g/dL (32-36); Mean Corpuscular Hgb 29.1 pg (27.0-32.0); Mean Corpuscular Volume 87.2 fL (81-99); Mean Platelet Vol. 9.9 fl (6.2-12.0); Monocyte# 0.85 X10^3/uL; Monocyte% 7.5 % (0-10); NRBC Flagged by Analyzer 0 % (0-5); Neutrophil # 8.38 X10^3/uL (2.7-7.7); Neutrophil % 73.8 % (47-70); Platelet Count 264 K/mm3 (150-450); RBC Distribution Width CV 12.6 % (11.6-14.6); RBC Distribution Width SD 39.8 fl (35.1-43.9); Red Blood Count 3.92 M/mm3 (4.2-5.4); White Blood Count 11.3 K/mm3 (4.4-11.0)
[2022-05-12] MEDS: Lactated Ringers 1,000 ML 100 ML IV (00:50)
[2022-05-12 00:59] LABS: Mucous, Urine 0 SEEN /hpf (<or=2+)
[2022-05-12 01:05] LABS: Color, Urine Yellow (Yellow); Glucose, Dipstick Normal (Normal); Ketone-Dipstick Negative (Negative); Leukocyte Esterase-Dipstick 500 /ul (Negative); Nitrite-Dipstick Negative (Negative); Occult Blood-Urine 150 /ul (Negative); Protein-Dipstick 30 mg/dl (Negative); Urine Bilirubin Dipstick Negative (Negative); Urine Clarity Clear (Clear); Urine Urobilinogen Normal (Normal)
[2022-05-12 01:15] LABS: Bacteria 2+ /hpf (None Seen); Red Blood Cells-Urine 5-10 SEEN /hpf (0-5); Squamous Epithelial Cells - UA 10-25 SEEN /hpf (5-10); White Blood Cells >100 SEEN /hpf (0-5)
[2022-05-12 01:34] LABS: Amphetamine Urine VISTA NEGATIVE (<1000 ng/mL); Barbiturate Urine VISTA NEGATIVE (< 200 ng/mL); Benzodiazepine Urine VISTA NEGATIVE (< 200 ng/mL); Cocaine Urine VISTA NEGATIVE (< 300 ng/mL); Ecstacy Urine VISTA NEGATIVE (< 500 ng/mL); Methadone Urine VISTA NEGATIVE (< 300 ng/mL); PCP Urine VISTA NEGATIVE (< 25 ng/mL); THC Urine VISTA NEGATIVE (< 50 ng/mL); Vista UDS pH Range 6
--- NOTE | 2022-05-12 01:36 | HP.PCM.OB_ITS ---
HPI - General HPI Narrative UBALDO PIÑA, is a 22 F who presents with contractions, no vaginal bleeding or loss of fluid admits good movement. Contractions started throughout the day and worsened tonight. She does have a cerclage in place for history of cervical insufficiency and she has a history of a . Maternal Data Information JOSE MARIA Calculator Estimated Delivery Date Method Current WG Current Estimate 07/01/22 Ultrasound #1 32w 6d Other Estimates 07/07/22 LMP (Uncertain) 32w 0d 07/07/22 Manual 32w 0d PFSH PFSH Medical History (Updated 05/12/22 @ 00:07 by Kasie Ramírez) Anxiety Bicornuate uterus delivery delivered demise (~03/2020) History of pre-term labor Positive GBS test Prolonged rupture of membranes, delivered Uterine anomaly Home Medications vitamin #56-iron 35 mg and 5 mg-folic acid 1 mg-dha capsule 1 cap PO DAILY 11/12/21 [History Last Taken 05/11/22] Allergy/AdvReac Type Severity Reaction Status Date / Time No Known Allergies Allergy Verified 05/11/22 22:59 Family History Other Breast cancer Surgical History (Updated 05/12/22 @ 00:07 by Kasie Ramírez) Previous section S/P appendectomy S/P cholecystectomy Social History adopted: No household members: significant other housing: house current occupational status: employed current occupation: [employer] current occupational exposures/hazards: No pets and animals: Yes (John De La Rosaver- Alexandrea 2.5 years old) pets and animals: dog(s) history of recent travel: No sexually active: Yes Smoking Status: Never smoker second hand exposure: Yes alcohol intake: current details: not while substance use type: does not use caffeine: Yes what type of physical activity do you participate in: walking seatbelt use: always do you feel safe at home: Yes additional social history: BF- Javi (Shana Coulter) 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 Date Name GA/Weeks Outcome Route Bth Weight Infant Gen Labor Lgth Anesthesia Del Locatn Provider FOB Unknown 01/06/21 Daisy Armstrong 32 live - prete rm 3lbs 11oz Male spinal [facility] unknown Javi 03/29/20 Sosa 18 still Female none [place] Javi Delivery Date: Last Updated by: Michaela Ellison MD c/s for breech presentation, cerclage, progesterone Delivery Date: 03/29/20 Last Updated by: Michaela Ellison MD PPROM, demise at 18 weeks Visit Details Expected Delivery Route/Plan RLTCS Plans Covid status: discussed Flu vaccine: discussed Tdap vaccine: declined Rhogam: n/a LARC form signed: [] Problem list reviewed and updated with the most current plan of care details and appropriate orders placed. Relevant counseling for the gestational age provided. Continue routine care and follow up unless otherwise noted in visit notes/problem list details OB Flowsheet Initial Weight: 110 lb Date -?-?-?-?-?-?-?-?-?-?-?-?- EGA Weight BP Urine Prot -?-?-?-?-?-?-?-?-?-?-?-?- Glucose FHR FuHt Pres Dilation -?-?-?-?-?-?-?-?-?-?-?-?- Effaced St Visit Note 12/03/21 -?-?-?-?-?-?-?-?-?-?-?-?- 10w 0d 112 lb (+2 lb) 92/56 -?-?-?-?-?-?-?-?-?-?-?-?- 170 -?-?-?-?-?-?-?-?-?-?-?-?- SM- preivous us at hospital, pos yeast infection treat with OTC monistat 01/22/22 -?-?-?-?-?-?-?-?-?-?-?-?- 17w 1d 113 lb (+3 lb) 122/60 -?-?-?-?-?-?-?-?-?-?-?-?- 146 -?-?-?-?-?-?-?-?-?-?-?-?- MH-Had light spo tting about 1 week after cerclage and none since. It was placed 12/31. Using vaginal progesterone. Has MFM follow ups scheduled. 01/30/22 -?-?-?-?-?-?-?-?-?-?-?-?- 18w 2d 116 lb (+6 lb) 110/58 Trace -?-?-?-?-?-?-?-?-?-?-?-?- Negative 147 0 -?-?-?-?-?-?-?-?-?-?-?-?- JV- pt is here d ue to cramping today. On exam she has an extensive yeast infection and is already status post monistat therapy. will try diflucan. culture collected. cx is closed and cerclage in place. 02/25/22 -?-?-?-?-?-?-?-?-?-?-?-?- 22w 0d 121 lb (+11 lb) 106/62 Negative -?-?--?-?-?-?-?-?-?-?-?-?- Negative 150 -?-?-?-?-?-?-?-?-?-?-?-?- JV- no lof, vagi nal bleeding, or dec fm. she has an appt with mfm next week. 04/23/22 -?-?-?-?-?-?-?-?-?-?-?-?- 30w 1d 132 lb 4 oz (+22 lb 4 oz) 122/66 Negative -?-?-?-?-?-?-?-?-?-?-?-?- Negative 135 0 -?-?-?-?-?-?-?--?-?-?-?-?- JV- pt complains of pressure today. She JV- pt complains of pressure today. cervixv is closed. cerclage in place but has a yeast infection. 05/07/22 -?-?--?-?-?-?-?-?-?-?-?-?- 32w 1d 134 lb 4 oz (+24 lb 4 oz) 116/76 Negative -?-?-?-?-?-?-?-?-?-?-?-?- Negative 150 32 Cephalic -?-?--?-?-?-?-?-?-?-?-?-?- LC- no lof, vb o r ctx. +FM. continues with yeast infection, Diflucan x2 ordered today. undecided mode of delivery. MFM following. 05/11/22 -?-?-?-?-?-?-?-?-?-?-?--?- 32w 5d 132 lb (+22 lb) 132/79 122/68 122/68 30 mg/dl (Negative) H -?-?-?-?-?-?-?-?-?-?-?-?- -?-?-?-?-?-?-?-?-?-?-?-?- NST FHR Rate Baby A Baseline: 130 Variability:: Moderate Accelerations:: 15 x 15 Decelerations:: None NST Reactive:: Yes FHR Category:: Category I Uterine Activity:: q3-5 ROS Constitutional Constitutional: Reports systems reviewed and no addt'l complaints, except as documented ENT HEENT: Reports systems reviewed and no addt'l complaints, except as documented Cardiovascular Cardiovascular: Reports systems reviewed and no addt'l complaints, except as documented Respiratory/Chest Respiratory/Chest: Reports systems reviewed and no addt'l complaints, except as documented Gastrointestinal Gastrointestinal: Reports systems reviewed and no addt'l complaints, except as documented and nausea; Denies abdominal pain Genitourinary Genitourinary: Reports systems reviewed and no addt'l complaints, except as documented, contractions Details: present and frequency (regular ) and movement Details: present Musculoskeletal Musculoskeletal: Reports systems reviewed and no addt'l complaints, except as documented Integumentary Integumentary: Reports as per HPI Neurologic Neurologic: Reports systems reviewed and no addt'l complaints, except as documented Endocrine Endocrinology: Reports systems reviewed and no addt'l complaints, except as documented Vital Signs Vital Signs Vital Signs: 05/11/22 22:30 05/11/22 22:30 05/11/22 22:33 Temperature Temperature Source Pulse Rate 105 H Blood Pressure 132/79 H BP Systolic 132 BP Diastolic 79 Pulse Ox 98 05/11/22 22:33 05/11/22 22:35 05/11/22 22:35 Temperature Temperature Source Pulse Rate 106 H 82 Blood Pressure BP Systolic BP Diastolic Pulse Ox 96 05/11/22 23:03 05/11/22 23:03 05/11/22 23:08 Temperature Temperature Source Temporal Pulse Rate 90 Blood Pressure 122/68 H BP Systolic 122 BP Diastolic 68 Pulse Ox 05/11/22 23:08 05/11/22 23:08 05/11/22 23:08 Temperature Temperature Source Pulse Rate 88 Blood Pressure 122/68 H BP Systolic 122 BP Diastolic 68 Pulse Ox 98 05/11/22 23:08 Temperature 99.8 F H Temperature Source Pulse Rate Blood Pressure BP Systolic BP Diastolic Pulse Ox Weight Weight: 132 lb Body Mass Index (BMI) 23.3 Physical Exam Const alert, oriented x3 and healthy appearing Constitutional Narrative: uncomfortable with contractions HEENT normocephalic and moist oral mucous membranes Head and Scalp: atraumatic Neck full ROM, no lymphadenopathy, supple and thyroid normal General: trachea midline Thyroid: thyroid normal Lymph Lymphatic: no lymphadenopathy noted Chest inspection of chest normal Resp normal respiratory effort Cardio regular rate GI normal to inspection, nondistended, normoactive bowel sounds, soft to palpation and non-tender Inspection: gravid external exam normal Bimanual Exam - Vag & Uterus: uterus non-tender Manual OB Exam: estimated gestational size appropriate, presentation cephalic, dilated, effaced and station Extremity normal to inspection General Extremity: Negative for edema Skin no rashes or lesions noted Neuro deep tendon reflexes 2+ bilaterally Motor Exam: strength 5/5 throughout and clonus absent Psych mental status grossly normal Labs Labs Labs: Blood Type B POSITIVE Antibody Screen NEGATIVE Hct 34.2 % (37-47) L Hgb 11.4 g/dL (12.0-15.0) L Obstetrics US Syphilis Total Ab Non-reactive VZV IgG Antibody < 135 index (Immune >165) L Rubella IgG Antibody Reactive (Nonreactive) Hep Bs Antigen Non-Reactive (Nonreactive) Chlamydia DNA (MARCIE) Negative (Negative) Neisseria gonorrhoeae DNA (MARCIE) Negative (Negative) HIV 1&2 Antibody Non-Reactive (Nonreactive) Glucose 1 Hr 50 gm 131 mg/dL (70-140) Group B Strep DNA POSITIVE (Negative) H Miscellaneous Test Assessment & Plan (1) Anxiety and depression: COMMENT: no current management, no counseling at this time (2) Previous delivery affecting : COMMENT: bicornuate uterus. previously in right horn with csection. current in left horn. plan RLTCS (3) Cervical insufficiency in , antepartum: COMMENT: h/o cerclage, plan MFM consult for cerclage placement (4) History of loss: COMMENT: 18 week pprom in [place]. third trimester testing (5) : QUALIFIERS: Weeks of gestation: 32 weeks Qualified Code(s): Z3A.32 - 32 weeks gestation of COMMENT: genetic and carrier screening discussed. Anatomy US normal (6) Supervision of high-risk : COMMENT: PRR JOSE MARIA 07/01/22 PC Violet, () boyfriend Javi (7) History of delivery: COMMENT: cerclage 12/31/21, progesterone if recommended by MFM. Growth US every 4 weeks per MFM 03/03 nl growth (8) Susceptible to varicella (non-immune), currently : COMMENT: previously non immune by lab, confirm vaccination status PLAN: Plan admit and monitor PTL contractions, no cervical change cervix ft with intact cerclage but 0 station and thin cervix. procardia given, IVFs, clear liquid diet, and celestone for prematurity. UA suggestive of infection start on ceftriaxone. leave cerclage intact for now unless starts having bleeding or dilating through
[2022-05-12] MEDS: fentaNYL 100 MCG/2 ML Ampul 50 MCG IV ×2 (01:37→03:57)
[2022-05-12] MEDS: Ceftriaxone 1 GM/50 ML BAG IV (01:46)
[2022-05-12] MEDS: NIFEdipine 10 MG Capsule 20 MG PO (02:28)
[2022-05-12 04:18] LABS: ROM Internal Control Test YES-OK TO RESULT pt. (Internal QC); ROM Patient Test Negative (Negative)
--- NOTE | 2022-05-12 05:41 | OP.PCM_ITS ---
Assessment & Plan (1) labor: COMMENT: admitted 05/12 made change despite procardia and dilated through cerclage, decision to proceed with RLTCS (2) Anxiety and depression: COMMENT: no current management, no counseling at this time (3) Previous delivery affecting : COMMENT: bicornuate uterus. previously in right horn with csection. current in left horn. plan RLTCS (4) Cervical insufficiency in , antepartum: COMMENT: h/o cerclage, plan MFM consult for cerclage placement (5) History of loss: COMMENT: 18 week pprom in [place]. third trimester testing (6) : QUALIFIERS: Weeks of gestation: 32 weeks Qualified Code(s): Z3A.32 - 32 weeks gestation of COMMENT: genetic and carrier screening discussed. Anatomy US normal (7) Supervision of high-risk : COMMENT: PRR JOSE MARIA 07/01/22 KEV Lazo, (Sosa-jul) boyfrienrenny Caldwell (8) History of delivery: COMMENT: cerclage 12/31/21, progesterone if recommended by MFM. Growth US every 4 weeks per MFM 03/03 nl growth (9) Susceptible to varicella (non-immune), currently : COMMENT: previously non immune by lab, confirm vaccination status (10) Cervical cerclage suture present: (11) Positive GBS test: COMMENT: treat in labor, pos in march Maternal Data Information JOSE MARIA Calculator Estimated Delivery Date Method Current WG Current Estimate 07/01/22 Ultrasound #1 32w 6d Other Estimates 07/07/22 LMP (Uncertain) 32w 0d 07/07/22 Manual 32w 0d Final JOSE MARIA Source: LMP Details Operative Information Date of Procedure: 05/12/22 Pre-Operative Diagnosis: Previous , labor, cerclage in place, abdominal pain and vaginal bleeding Post-Operative Diagnosis: same Indications for : Repeat Elective Classification: ZHANG Procedure Type: low transverse pipe bowl paint trimmer #1: Allyn Ricardo Type of Anesthesia: Spinal Special Medications: none Antibiotic Given: Ancef 2 grams IV x1 Drain: Garcia to straight drain Estimated Blood Loss: 800 Fluids Replaced: crystalloid Findings Description of Procedure: Spinal anesthesia was placed without difficulty. Garcia catheter was placed. The patient was placed in the dorsal supine position with leftward tilt. Patient was prepped and draped in the normal sterile fashion. Pfannenstiel skin incision was made with the scalpel and carried through to the underlying layer of fascia with the scalpel. Fascia was nicked in the midline and the incision extended laterally. The rectus bellies were dissected off superiorly and inferiorly with out complication both sharply and bluntly. The peritoneum was entered digitally. The incision was stretched and a low transverse uterine incision was made with the scalpel. The infant's head was delivered atraumatically followed by the anterior and posterior shoulders without complication the rest of the infant delivered. The cord was clamped and cut and the infant was handed off to awaiting nurse. The placenta was delivered sponta neously immediately following and was noted to be intact and have a three-vessel cord. The uterus was exteriorized cleared of all clots and debris, and the incision was closed in a double layer closure using #1 Monocryl. The ovaries and fallopian tubes were noted to be within normal limits. The uterus was returned to the maternal abdomen and gutters were cleared of all clots and debris. The peritoneum was closed with 3-0 Monocryl in a running fashion. Gloves were changed prior to fascial closure. Fascia was closed with 0 PDS in a running fashion. Subcutaneous tissue was copiously irrigated and the skin was closed with 3-0 Monocryl in a subcuticular fashion. Mepilex dressing was applied without complication. patient was then placed in stirrups and the cerclage grasped with ring forceps, cut, and removed without complication. Patient was taken to recovery in stable condition. Amniotic Membrane Rupture Type: Artificial Amniotic Fluid Description: Clear Placenta Disposition: [facility] Cord Vessel Description: 3 Vessels Cord Entanglement: None Delayed Cord Clamping: Yes Complications Risks of Surgery Discussed w/Patient: Bleeding, Infection, Need for Future C- Sections and Injury to surrounding structure(s) including bowel and bladder Vaginal Delivery Complication Complications: None Admit VTE Documentation VTE Present on Admission: No VTE Mechan Device Prophylaxis: SCD's Procedures Urinary/Genital [id number]: [id number] delivery+PP Care([facility])
--- NOTE | 2022-05-12 05:44 | DCINST_ITS ---
Discharge Instructions Diet Discharge Diet: No restrictions Activity Discharge Activity: Return to Normal Activity, May Drive (when pain free and off narcotic pain meds), May Shower and May Take a Tub Bath (in 4 weeks) May resume sexual activity in: 6 weeks Weight Bearing Status: Full weight bearing Lifting Restrictions: under 30 lbs for 6 weeks Dressing / Incision Call your doctor if your incision/area has: Continuous Slow Oozing, Sudden Increased Bleeding, Increased Pain/ Swelling, Increased Redness, Foul Smelling Discharge and - Call your doctor if you observe: Fever of 101 or Higher, Using more than 1 pad per hour, Shortness of breath, Chest pain and Uncontrolled pain Suture Line Care: Avoid Pulling/Pushing and Avoid Pinching/Bending Change Dressing in: 1 week (leave open to air after removed) Remove Dressing in: 1 week (if present) Cleanse incision/area with: Soap & Water and Keep Dressing Clean & Dry Follow Up Care Please Follow Up With: Michaela Ellison MD When: Call to make an appointment with your doctor for a postop visit in 2 and 6 weeks. Test Results: Test results from this visit will be discussed in further detail at your follow- up appointment, if applicable. Discharge Plan Admission Admit Date/Time: 05/12/22 04:10 Attending Provider: Michaela Ellison Primary Care Provider: Care Physician,Ophelia Primary Instructions Patient Instructions: After a Discharge Orders/Prescriptions Prescriptions: New oxycodone-acetaminophen [Percocet] 5-325 mg tablet 1 tab PO Q6H PRN (Reason: pain) 7 Days Qty: 20 0RF naproxen [naproxen] 500 mg tablet 500 mg PO BID PRN PRN (Reason: Pain) Qty: 30 1RF oxycodone-acetaminophen [Percocet] 5-325 mg tablet 1 tab PO Q6H PRN (Reason: pain) 7 Days Qty: 20 0RF naproxen [naproxen] 500 mg tablet 500 mg PO BID PRN PRN (Reason: Pain) Qty: 30 1RF No Action PNV #[id number] acid-dha 35 mg iron-5 mg iron-1 mg capsule 1 cap PO DAILY Referrals / Follow Up: Care Physician,No Primary [Primary Care Provider] - Disposition Disposition (needs filled in before D/C Order can be placed): Home, Self Care
[2022-05-12] MEDS: Ketorolac 30 MG/ML Syringe IV ×3 (07:14→18:42)
[2022-05-12] MEDS: Oxytocin 30 units/NS 500 ml 30 UNITS/500 ML IV.SOLN 167 UNITS IV (07:15)
[2022-05-12] MEDS: Acetaminophen 500 MG Tablet 1000 MG PO ×3 (08:29→21:30)
[2022-05-12] MEDS: Cefazolin 2 GM in 0.9% Normal Saline 100 ML IV (08:54)
--- NOTE | 2022-05-12 09:06 | NURSING ---
0904- This RN IBCLC in room to bring [facility] double breast pump and supplies into room for pt d/t being in SCN for prematurity. Pt. reports wanting to combination feed, breast and bottle. Breast pump set up with colostrum collectors and pump settings reviewed with pt. Pt. is not feeling well and is very exhausted at the moment, but breast pump all set up and pt. encouraged to pump within 4 hours of delivery, but for sure by 6 hours. Pt. educated to call out for as needed for help with pump. Pump cleaning and milk collection supplies also in room at this time. Will continue to provide support and assess for needs.
--- NOTE | 2022-05-12 12:00 | NURSING ---
1153- Pt. up in [facility]. This RN IBCLC touching base since pt. did not call out to see how pumping went. Pt. reports she hadn't been feeling well still so she has not pumped. The importance of early and frequent pumping reviewed with pt. and she said she would call RN IBCLC when she returned to room for pumping as she did not want to pump in SCN. Will continue to encourage pumping and provide support.
[2022-05-12] MEDS: 0.9% Saline Lock 10 ML Syringe IV ×2 (13:26→18:46)
[2022-05-13] MEDS: Ketorolac 30 MG/ML Syringe IV (01:10)
[2022-05-13] MEDS: 0.9% Saline Lock 10 ML Syringe IV (01:11)
[2022-05-13] MEDS: Acetaminophen 500 MG Tablet 1000 MG PO ×4 (04:20→22:40)
[2022-05-13 04:30] VITALS: BP 106/48; PULSE 59; RESP 15; TEMP 36.5
[2022-05-13 05:32] LABS: Hematocrit 30.1 % (37-47); Hemoglobin 9.8 g/dL (12.0-15.0); Mean Corp Hgb Conc 32.6 g/dL (32-36); Mean Corpuscular Hgb 28.6 pg (27.0-32.0); Mean Corpuscular Volume 87.8 fL (81-99); Mean Platelet Vol. 9.6 fl (6.2-12.0); Platelet Count 247 K/mm3 (150-450); RBC Distribution Width CV 12.6 % (11.6-14.6); RBC Distribution Width SD 40.7 fl (35.1-43.9); Red Blood Count 3.43 M/mm3 (4.2-5.4); White Blood Count 14.8 K/mm3 (4.4-11.0)
--- NOTE | 2022-05-13 07:51 | PN.OBGYN_ITS ---
Subjective Subjective Patient doing well without complaints. Tolerating PO. Ambulating and voiding without difficulty. Feeding well. Denies chest pain, shortness of breath, calf pain/swelling, fevers, chills, lightheadedness. Objective Data Objective Data Vital Signs: Vital Signs Temp Pulse Resp BP Pulse Ox O2 Del Method 97.7 F L 59 L 15 106/48 L 100 Room Air 05/13/22 04:30 05/13/22 04:30 05/13/22 04:30 05/13/22 04:30 05/12/22 15:13 05/12/22 15:13 Oxygen Delivery Method Room Air Weight: 132 lb Body Mass Index (BMI) 23.3 Intake & Output: Intake and Output for Last 24 Hours 05/11/22 05/12/22 05/13/22 23:59 23:59 23:59 Intake Total 3549 / 3549 Output Total 1550 / 1550 Balance 1998 Lab / Micro Data Result Diagrams: 05/13/22 05:25 Labs: Laboratory Results - last 24 hr 05/13/22 05:25: WBC 14.8 H, RBC 3.43 L, Hgb 9.8 L, Hct 30.1 L, MCV 87.8, MCH 2 8.6, MCHC 32.6, RDW Std Deviation 40.7, RDW Coeff of Anthony 12.6, Plt Count 247, MPV 9.6 Physical Exam Const alert and oriented x3 HEENT normocephalic Eyes PERRL Neck full ROM Resp normal respiratory effort GI soft to palpation GI Narrative: FF below U Assessment & Plan (1) delivery delivered: COMMENT: KAYLEIGH PTL cerclage 32 SM Daisy Brown PLAN: Plan s/p LTCS PPD # 1 1. routine post care 2. breast feeding- support given/SCN 3. rh positive 4. rubella immune
[2022-05-13 08:00] VITALS: BP 107/53; PULSE 58; RESP 16; TEMP 36.4; O2SAT 97
[2022-05-13] MEDS: Naproxen 500 MG Tablet PO ×3 (08:03→23:54)
[2022-05-13 08:18] VITALS: BP 107/53; PULSE 58; RESP 16; TEMP 36.4; O2SAT 97
[2022-05-13] MEDS: Senna/Docusate Sodium 1 Tablet PO (10:27)
[2022-05-13 14:17] VITALS: BP 106/57; PULSE 57; RESP 16; TEMP 36.4; O2SAT 97
[2022-05-13 14:20] VITALS: BP 106/57; PULSE 62; RESP 16; TEMP 36.4
--- NOTE | 2022-05-13 19:35 | NURSING ---
193- Pt sitting on couch when IBCLC called to room to assess flange size for breast pump. Pt reports that when she was her first child, he would only occasionally latch with a nipple shield so she decided to exclusively pump. When she was pumping, she did have to get smaller flanges for her pump. Assessment showed nipple size was 14mm, so Flexi-enciso given from [facility] to make pumping a more efficient and comfortable experience. Pt reports she wants a hands free pump for once they are discharged, but that she currently has a Medela at home. With her first child she pumped and gave breastmilk for about 6 months. She reports wanting for things to go better this time around. 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 Pt verbalized understanding. and pumping education given, as well as encouragement and support. Will continue to monitor for needs.
[2022-05-13] MEDS: oxyCODONE 5 MG Tablet PO ×2 (19:52→23:54)
[2022-05-13 20:00] VITALS: BP 121/72; PULSE 64; RESP 16; TEMP 36.6; O2SAT 99
[2022-05-13 22:06] LABS: Chlamydia By Nucleic Acid AMP Negative (Negative)
--- NOTE | 2022-05-13 22:11 | NURSING ---
2200- Pt. using breast pump at this time. RN IBCLC assessed pumping session and Flexi-enciso seem to be a much better fit based on MOB anatomy. Reinforced education about pumping and frequency of breast stimulation. Also provided education on progression of milk transition and amounts of milk she can expect to see while pumping over the next few days per session. MOB verbalized understanding.
[2022-05-14 02:35] VITALS: BP 120/66; PULSE 59; RESP 18; TEMP 36.2; O2SAT 99
[2022-05-14] MEDS: Acetaminophen 500 MG Tablet 1000 MG PO ×2 (04:42→10:51)
[2022-05-14] MEDS: oxyCODONE 5 MG Tablet PO ×2 (04:43→08:49)
--- NOTE | 2022-05-14 08:23 | PCM.PN.OB ---
Subjective Subjective Patient doing well without complaints. Tolerating PO. Ambulating and voiding without difficulty. Feeding well. Denies chest pain, shortness of breath, calf pain/swelling, fevers, chills, lightheadedness. Baby doing well in [facility] Objective Data Objective Data Vital Signs: Vital Signs Temp Pulse Resp BP Pulse Ox O2 Del Method 97.2 F L 59 L 18 120/66 99 Room Air 05/14/22 02:35 05/14/22 02:35 05/14/22 02:35 05/14/22 02:35 05/14/22 02:35 05/14/22 02:35 Oxygen Delivery Method Room Air Weight: 132 lb Body Mass Index (BMI) 23.3 Intake & Output: Intake and Output for Last 24 Hours 05/12/22 05/13/22 05/14/22 23:59 23:59 23:59 Intake Total 3549 / 3549 Output Total 1550 / 1550 Balance 1998 Lab / Micro Data Result Diagrams: 05/13/22 05:25 Micro: Microbiology 05/12/22 00:50 Urine, Clean Catch Urine Culture - Final Presumptive Lactobacillus sp. Physical Exam Const alert and oriented x3 HEENT normocephalic Eyes PERRL Neck full ROM Resp normal respiratory effort GI soft to palpation GI Narrative: FF below U. Dressing dry and intact Palpation: tender other (appropriately) Assessment & Plan (1) delivery delivered: COMMENT: RLTCS PTL cerclage 32 SM Daisy Brown (2) Anxiety and depression: COMMENT: no current management, no counseling at this time (3) Contraception management: COMMENT: Wants nexplanon at 6 wk pp visit PLAN: Plan s/p LTCS PPD # 2 1. routine post care 2. breast feeding- support given 3. rh positive 4. rubella immune 5. hotel status today.
[2022-05-14 08:40] VITALS: BP 107/43; PULSE 54; RESP 16; TEMP 36.2
[2022-05-14] MEDS: Naproxen 500 MG Tablet PO (08:49)
[2022-05-14] MEDS: Senna/Docusate Sodium 1 Tablet PO (10:51)
[2022-05-14 16:34] LABS: Gonococcus By Nucleic Acid AMP Negative (Negative)
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
== END 2022-05-14 11:50 | disposition home or self-care (01) | DRG 788 ==
LOC: WPOUT 04:12 → WP 04:12
PROVIDERS: Admitting Provider Obstetrics & Gynecology; Visit Provider Obstetrics & Gynecology
DX: O99.824 Streptococcus B carrier state complicating childbirth (principal); F32.A Depression, unspecified; F41.9 Anxiety disorder, unspecified; O99.344 Other mental disorders complicating childbirth; Z37.0 Single live birth; O34.219 Maternal care for unspecified type scar from previous cesarean delivery; Z87.51 Personal history of pre-term labor; O34.30 Maternal care for cervical incompetence, unspecified trimester
CPT/HCPCS: 59025; 59050; 80307; 81001; 84112; 85025; 85027; 86850; 86900; 86901; 87086; 87088; 87491; 87591; 99218; J7120; A4216; G0378; J0702

== ENCOUNTER → 2023-01-01 | Outpatient (CLI) | payer BC, MEDICAID, SELFPAY ==
[2023-01-04 09:07] LABS: Chlamydia By Nucleic Acid AMP Negative (Negative); Gonococcus By Nucleic Acid AMP Negative (Negative)
== END | disposition home or self-care (01) ==
LOC: LABSPEC 13:40
PROVIDERS: Referring Provider Advanced Practice Midwife; Visit Provider Advanced Practice Midwife
DX: N93.9 Abnormal uterine and vaginal bleeding, unspecified (principal)
CPT/HCPCS: 87070; 87205; 87491; 87591

== ENCOUNTER → 2023-01-02 | Outpatient (CLI) | payer BC, MEDICAID, SELFPAY ==
--- NOTE | 2023-01-02 11:09 | US_ITS ---
HISTORY: AUB. TECHNIQUE: Transvaginal pelvic ultrasound was performed with hernandez scale and color Doppler evaluation. 60 images. COMPARISON: 11/06/2021. FINDINGS: UTERUS: Bicornuate uterus with the left uterine horn 6.8 x 2.8 x 2.6 cm and the right horn 6.4 x 2 x 2.8 cm. Small echogenic shadowing region which may represent calcification and scarring. ENDOMETRIAL THICKNESS: [Left uterine horn 10 mm. Right uterine horn 2 mm. RIGHT OVARY: 1.9 x 3.5 x 2.1 cm with small follicles. No adnexal masses LEFT OVARY: 1 x 2.5 x 2.4 cm with small follicles. No adnexal masses FREE FLUID: None. US/Transvaginal Non- IMPRESSION: Bicornuate uterus without evidence for endometrial thickening. Electronically Signed: Fiorella Ramirez MD at 12:52 EDT ,
[2023-01-02 12:33] LABS: Absolute Lymphocyte Count 1.69 X10^3/uL (0.83-4.51); Absolute Neutrophil Count 2.9 X10^3/uL (2.0-7.7); Basophil# 0.07 X10^3/uL; Basophil% 1.3 % (0-1); Eosinophil# 0.06 X10^3/uL; Eosinophils% 1.1 % (0-5); Hematocrit 40.2 % (37-47); Hemoglobin 13.2 g/dL (12.0-15.0); Lymphocyte # 1.69 X10^3/ul (0.83-4.51); Lymphocyte % 32.1 % (19-41); Mean Corp Hgb Conc 32.8 g/dL (32-36); Mean Corpuscular Hgb 29.1 pg (27.0-32.0); Mean Corpuscular Volume 88.5 fL (81-99); Mean Platelet Vol. 9.8 fl (6.2-12.0); Monocyte# 0.51 X10^3/uL; Monocyte% 9.7 % (0-10); NRBC Flagged by Analyzer 0 % (0-5); Neutrophil # 2.91 X10^3/uL (2.7-7.7); Neutrophil % 55.4 % (47-70); Platelet Count 317 K/mm3 (150-450); RBC Distribution Width CV 11.6 % (11.6-14.6); RBC Distribution Width SD 37.2 fl (35.1-43.9); Red Blood Count 4.54 M/mm3 (4.2-5.4); White Blood Count 5.3 K/mm3 (4.4-11.0)
[2023-01-02 13:15] LABS: ALB/GLOB Ratio 1.2 RATIO (0.9-2.4); AST(SGOT) 19 U/L (15-37); Alanine Aminotransfer ALT/SGPT 17 U/L (13-56); Albumin, Serum 4.1 g/dL (3.2-5.0); Alkaline Phosphatase 57 U/L (45-117); Anion Gap 6 (5-15); BUN 14 mg/dL (7-18); BUN/Creat Ratio 14.6 RATIO (10-20); Chloride 105 mmol/L (98-107); Creatinine, Serum 0.96 mg/dL (0.55-1.02); EST Glomerular Filtration Rate 77 mL/min (>60); Est Glom Filt Rate - Afr Amer 93 mL/min (>60); Globulin 3.5 g/dL (2.2-4.2); Glucose 66 mg/dL (74-106); Potassium 3.6 mmol/L (3.5-5.1); Protein, Total 7.6 g/dL (6.4-8.2); Sodium Level 141 mmol/L (136-145)
== END | disposition home or self-care (01) ==
PROVIDERS: Referring Provider Advanced Practice Midwife; Visit Provider Advanced Practice Midwife
DX: N93.9 Abnormal uterine and vaginal bleeding, unspecified (principal)
CPT/HCPCS: 36415; 76830; 80053; 85025

== ENCOUNTER 2023-03-03 07:16 | Day surgery (SDC) | payer BC, MEDICAID, SELFPAY ==
--- NOTE | 2023-03-03 | FALS_PTH ---
PATIENT: UBALDO PIÑA LOC: [facility] U#:[id number] AGE/SX: 22/ ROOM: RE03/03/[address]: Dr. She Lopez DO : 2000 BED: DIS: 03/03/2023 SPEC #: [id number] RECD: 03/03/23 10:40 STATUS: MIRANDA RODNEY #: [id number] RACH: 03/03/23 00:[address]: She Lopez DEPT: SURGICAL PATHOLOGY RECD BY: Kenny Francois ENTERED: 03/03/23 10:40 SP TYPE: FALL TUBES OTHR DR: No Primary Care Phys Tissues: Fallopian tube Procedures: Surgery Specimen Level II HEADER OPERATION: Laparoscopic salpingectomy, removal of Nexplanon PRE-OP DIAGNOSIS: Desire sterilization and removal of Nexplanon implant TISSUE SUBMITTED: Bilateral fallopian tubes MICROSCOPIC DIAGNOSIS Right and left fallopian tubes, bilateral salpingectomies: Complete cross-sections of fallopian tubes with no pathologic change. AM:sade 03/04/2023 MICROSCOPIC DESCRIPTION Slides are reviewed. GROSS DESCRIPTION Received in fixative is one container labeled with the patient's name and designated bilateral fallopian tubes. The specimen consists of bilateral fallopian tubes including fimbrial ends measuring 5.5 cm in length and 0.5 cm in diameter and 6.0 cm in length and 0.5 cm in diameter. The fallopian tubes are not identified as right or left. Sections reveal unremarkable cut surfaces. Manager Telemarketing sections are submitted in two cassettes with each cassette containing one fallopian tube. / SJ:sade 03/03/2023 TC:4 CPT: 68173 x2
[2023-03-03 07:33] VITALS: BP 114/74; PULSE 58; RESP 17; TEMP 36.6; O2SAT 100; BMI 19.3
[2023-03-03] MEDS: Lactated Ringers 1,000 ML 15 ML IV (07:36)
[2023-03-03 07:47] LABS: Absolute Lymphocyte Count 1.83 X10^3/uL (0.83-4.51); Absolute Neutrophil Count 3.2 X10^3/uL (2.0-7.7); Basophil# 0.05 X10^3/uL; Basophil% 0.9 % (0-1); Eosinophil# 0.06 X10^3/uL; Hematocrit 41.4 % (37-47); Hemoglobin 13.4 g/dL (12.0-15.0); Internal QC Validated? YES +Cl - CLEAR BKGD; Lymphocyte # 1.83 X10^3/ul (0.83-4.51); Mean Corp Hgb Conc 32.4 g/dL (32-36); Mean Corpuscular Hgb 28.8 pg (27.0-32.0); Mean Platelet Vol. 9.4 fl (6.2-12.0); Monocyte# 0.54 X10^3/uL; Monocyte% 9.4 % (0-10); NRBC Flagged by Analyzer 0 % (0-5); Neutrophil # 3.22 X10^3/uL (2.7-7.7); Neutrophil % 56.4 % (47-70); Platelet Count 344 K/mm3 (150-450); RBC Distribution Width CV 11.9 % (11.6-14.6); RBC Distribution Width SD 38.3 fl (35.1-43.9); Red Blood Count 4.65 M/mm3 (4.2-5.4); White Blood Count 5.7 K/mm3 (4.4-11.0)
[2023-03-03 07:50] LABS: Pregnancy, Urine Negative Negative
--- NOTE | 2023-03-03 07:52 | HP.PCM_ITS ---
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 Operator Required: No Is patient in pain?: No Allergies No Known Allergies Allergy (Verified 01/30/23 14:21) Medications etonogestrel 68 mg subdermal implant (Nexplanon) 1 implant subdermal ONCE 01/30/23 [History Confirmed 01/30/23] Post menopausal: No [facility] : [facility] Anxiety Bicornuate uterus delivery delivered demise (~03/2020) History of pre-term labor Positive GBS test Prolonged rupture of membranes, delivered Uterine anomaly Surgical History Previous section S/P appendectomy S/P cholecystectomy Family History Other Breast cancer Social History adopted: No household members: significant other housing: house current occupational status: employed current occupation: [employer] current occupational exposures/hazards: No pets and animals: Yes (John Byrnes- Alexandrea 2.5 years old) pets and animals: dog(s) history of recent travel: No sexually active: Yes Smoking Status: Never smoker second hand exposure: Yes alcohol intake: current details: not while substance use type: does not use caffeine: Yes what type of physical activity do you participate in: walking seatbelt use: always do you feel safe at home: Yes additional social history: [employer] (Shana Coulter) Patient works for [employer] [facility] surgery consult, discuss tubal Details: UBALDO PIÑA is a 22 year old who presents for discussion about bilateral salpingectomy. She has a history of an 18 week loss and 2 prior sections with labor x 2 with cerclage breakthrough for second baby. She is not willing to undergo another high risk . History 4 Elective abortions 0 Hx Para 2 Spontaneous abortions 1 Hx # Term Pregnancies 1 Ectopic pregnancies 0 Hx # Pregnancies 3 Multiple births 0 # of living children 2 Past Pregnancies Del. Date Name GA/Weeks Outcome Route Bth Weight Gen Labor [facility] F[facility] Unknown 01/06/21 Daisy Armstrong 32 live - C-secti on 3lbs 11oz Male spinal [facility] unknown Javi 03/29/20 Sosa 18 still Female none [place] Javi Delivery Date: Last Updated by: Michaela Ellison MD c/s for breech presentation, cerclage, progesterone Delivery Date: 03/29/20 Last Updated by: Michaela Ellison MD PPROM, demise at 18 weeks ROS Const ROS Unobtainable: All systems reviewed & are unremarkable except as noted in H Resp Resp: Reports system reviewed and no additional complaints, except as documented; Denies cough GI GI: Reports as per HPI Psych Psych: Reports system reviewed and no additional complaints, except as documented Exam Const General: cooperative, healthy appearing, comfortable and no acute distress Resp Effort & Inspection: normal respiratory effort Skin General: no rashes or lesions noted Psych Appearance: grossly normal Speech and Movement: speech and movement normal Coding Level of Care Code Off vis,est,level 4 Diagnoses Contraception management Z30.9 Assessment and Plan Assessment and Plan (1) Contraception management: Status: Acute Comment: Wants nexplanon at 6 wk pp visit, No PA required Plan After discussing the patient's diagnosis and treatment plan options, patient wishes to proceed with surgical management. I have discussed with the patient the risks, benefits, and alternatives of the procedure which include but are not limited to risks of anesthesia, bleeding, infection, possible damage to bowel, bladder, or surrounding vasculature which could lead to additional surgery to evaluate any complications. Patient agrees to procedure and wishes to proceed. ACOG/uptodate references given for additional information regarding procedure. plan for laparoscopic bilateral salpingectomy and removal of nexplanon.
--- NOTE | 2023-03-03 07:53 | DCINST_ITS ---
Discharge Instructions Diet Discharge Diet: No restrictions Activity Discharge Activity: Return to Normal Activity, May Not Drive (for two weeks or while taking narcotic pain medications.), May Shower and May Take a Tub Bath (in 7 days) May resume sexual activity in: 1 week Weight Bearing Status: Full weight bearing Dressing / Incision Call your doctor if you observe: Using more than 1 pad per hour, Shortness of breath, Chest pain and Uncontrolled pain Suture Line Care: Avoid Pulling/Pushing and Avoid Pinching/Bending Remove Dressing in: 1 week (if present) Cleanse incision/area with: Soap & Water and Keep Dressing Clean & Dry Follow Up Care Please Follow Up With: She Lopez DO When: Call to make an appointment with your doctor for a follow up incision check in 1-2 weeks. Test Results: Test results from this visit will be discussed in further detail at your follow- up appointment, if applicable. Discharge Plan Admission Primary Reason for Your Visit: laparoscopic bilateral salpingectomy, removal of nexplanon. Attending Provider: She Lopez Primary Care Provider: Care Ophelia Brooks Primary Discharge Orders/Prescriptions Prescriptions: New naproxen 500 mg tablet 500 mg PO BID PRN (Reason: pain) Qty: 30 0RF No Action Nexplanon 68 mg implant 1 implant subdermal ONCE Rx Instructions: as a single dose Referrals / Follow Up: Care PhysicianOphelia Primary [Primary Care Provider] - Disposition Disposition (needs filled in before D/C Order can be placed): Home, Self Care
[2023-03-03 08:06] LABS: International Normalized Ratio 1.1; Partial Thromboplast Time 31.9 Seconds (24.1-36.2); Prothrombin Time (Protime)PT. 13.9 SECONDS (11.7-14.9)
--- NOTE | 2023-03-03 08:50 | OP.PCM_ITS ---
Problems Associated Problem List Diagnoses (1) Contraception management: Report of Operation Date of Procedure: 03/03/23 Pre-Operative Diagnosis: desires permanent sterilization and removal of nexplanon device Post-Operative Diagnosis: desires permanent sterilization and removal of nexplanon device Surgery/Procedure Performed:: laparoscopic bilateral salpingectomy Surgeon: She Lopez pulmonologist/intensivist: None Type of Anesthesia: General Specimen's removed: bilateral fallopian tubes, nexplanon device Drains: none Estimated Blood Loss (mL): 5 cc Description of Procedure: Patient was taken in the operating room and was placed under general anesthesia was prepped and draped in normal sterile fashion in the dorsal lithotomy position. Bladder was drained of clear urine and SCDs were on preoperatively. Uterus was sounded and a uterine manipulator was placed after dilating. Attention was then paid to the abdominal portion of the procedure and the umbilicus was elevated and injected with Marcaine and after a 5 mm incision was made and a 5 mm trocar was inserted into the abdomen under direct visualization using the laparoscope. Abdomen was insufflated with CO2 gas and a 5 mm optical trocar was placed under direct visualization. A left lower quadrant 5 mm port and a mini grasper suprapubically were placed under direct visualization. Uterus was well visualized and bilateral fallopian tubes identified and bilateral tubes were elevated and transecting across the mesosalpinx and the attachment to the uterine corpus bilaterally the tubes were removed without complication. Excellent hemostasis was noted. Fallopian tubes were removed through the lower port sites without complication. Liver and upper abdomen were visualized notably within normal limits and no other gross abnormalities were seen in the abdomen. All instruments removed from the abdomen after gas was desufflated. Port sites were closed with 3-0 Monocryl surgical glue then used. Her left arm was then bent, injected over the nexplanon site with 0.25% li docaine and an incision was made. the device was pushed out without difficulty and steri strips, op site, and compression band applied. All instruments removed from the vagina and patient was awoken and taken recovery in stable condition. Procedure Start Time: 08:28 Procedure Stop Time: 08:49 Complications none Admit VTE Documentation VTE Present on Admission: No VTE Mechan Device Prophylaxis: SCD's VTE Pharm Prophylaxis ordered?: No Multi Select Codes Urinary/Genital Urinary/Genital CPT Codes: 27222 Laproscopic BS/O and Other Procedure See Report
[2023-03-03 09:03] VITALS: BP 106/64; BP 114/74; PULSE 64; RESP 16; TEMP 36.4; O2SAT 100
[2023-03-03 09:15] VITALS: BP 104/68; BP 114/74; PULSE 54; RESP 16; O2SAT 100
[2023-03-03 09:33] VITALS: BP 114/74; BP 99/37; PULSE 46; RESP 16; TEMP 36.6; O2SAT 100
[2023-03-03 10:23] VITALS: BP 114/74
[2023-03-03] MEDS: Oxycodone/Apap 5/325 Tablet PO (10:29)
[2023-03-03 11:16] VITALS: BP 104/55; BP 114/74; PULSE 52; RESP 18; TEMP 37.1; O2SAT 99
== END 2023-03-03 11:18 | disposition home or self-care (01) ==
LOC: SDC 07:18 → AC 07:19
PROVIDERS: Anesthesiology; Referring Provider Obstetrics & Gynecology; Visit Provider Obstetrics & Gynecology
PROC: (CPT 58661; principal; 2023-03-03 08:30)
DX: Z30.2 Encounter for sterilization (principal); Z30.46 Encounter for surveillance of implantable subdermal contraceptive; Z90.49 Acquired absence of other specified parts of digestive tract; Z87.51 Personal history of pre-term labor
CPT/HCPCS: 58661; 58301; 00840; 81025; 85025; 85610; 85730; 86850; 86900; 86901; 88302; J7120; J2405

== ENCOUNTER → 2023-10-14 | Outpatient (CLI) | payer BC, SELFPAY | END | disposition home or self-care (01) | LOC: LABSPEC 15:56 | PROVIDERS: Referring Provider Nurse Practitioner Women's Health; Visit Provider Nurse Practitioner Women's Health | DX: R30.0 Dysuria (principal) | CPT/HCPCS: 87086; 87088 ==